=== PATIENT | male | born 1975 | race Caucasian/White ===

== ENCOUNTER 2020-03-17 14:13 | Observation (INO) | payer SELFPAY ==
[2020-03-17] MEDS ORDERED: HYDROmorphone 0.5 MG/0.5 ML Syringe IVPUSH ONE ×2 (14:53→17:23)
[2020-03-17] MEDS ORDERED: Ondansetron 4 MG/2 ML SDV IVPUSH ONE ×2 (14:53→16:07)
[2020-03-17] MEDS ORDERED: Sodium Chloride 0.9% 10 ML Syringe FLUSH PRN (14:53)
--- NOTE | 2020-03-17 14:58 | EDM.PDOC ---
ED HPI GENERAL MEDICAL PROBLEM - General Chief Complaint: Abdominal Pain Stated Complaint: ABDOMINAL AND BACK PAIN Time Seen by Provider: 03/17/20 14:33 Source of Information: Reports: Patient History Limitations: Reports: No Limitations - History of Present Illness INITIAL COMMENTS - FREE TEXT/NARRATIVE: Patient is a 44-year-old male who presents to the emergency department with complaints of generalized abdominal and back pain, as well as vomiting that developed this morning. Patient states the pain began approximately 4 days ago as right-sided abdominal pain. It gradually progressed throughout his entire abdomen and through to his back. This morning he developed onset of vomiting. He denies any associated diarrhea. States has been having normal bowel movements. He does still have his appendix and gallbladder. Denies any chronic health conditions. Denies alcohol use. He has not had a known fever with this illness, however states he has been chilled today. Denies any history of kidney stones or presence of blood in his urine. Middle Back Pain Score (Numeric/FACES): 8 - Related Data Allergies Allergy/AdvReac Type Severity Reaction Status Date / Time No Known Allergies Allergy Verified 03/17/20 14:33 Past Medical History - Infectious Disease History Infectious Disease History: Reports: Chicken Pox - Past Surgical History HEENT Surgical History: Reports: Oral Surgery Social & Family History - Family History Family Medical History: Noncontributory - Tobacco Use Smoking Status *Q: Current Every Day Smoker Years of Tobacco use: 30 Packs/Tins Daily: 1 ED ROS GENERAL - Review of Systems Review Of Systems: See Below Constitutional: Reports: Chills. Denies: Fever HEENT: Reports: No Symptoms Respiratory: Reports: No Symptoms. Denies: Shortness of Breath, Cough Cardiovascular: Reports: No Symptoms. Denies: Chest Pain, Palpitations ED EXAM, GI/ABD - Physical Exam Exam: See Below Exam Limited By: No Limitations General Appearance: Alert, WD/WN, Mild Distress, Active Emesis Respiratory/Chest: No Respiratory Distress, Lungs Clear, Normal Breath Sounds, No Accessory Muscle Use, Chest Non-Tender Cardiovascular: Normal Peripheral Pulses, Regular Rate, Rhythm, No Edema, No Gallop, No JVD, No Murmur, No Rub GI/Abdominal Exam: Normal Bowel Sounds, Soft, No Organomegaly, No Distention, No Abnormal Bruit, No Mass, Pelvis Stable, Tender (Right lateral, right upper quadrant, and left upper quadrant). No: Guarding, Rigid, Rebound Extremities: Normal Inspection, Normal Range of Motion, Non-Tender, Normal Capillary Refill, No Pedal Edema Neurological: Alert, Oriented, CN II-XII Intact, Normal Cognition, Normal Gait, Normal Reflexes, No Motor/Sensory Deficits Psychiatric: Normal Affect, Normal Mood Skin Exam: Warm, Dry, Intact, Normal Color, No Rash Course - Vital Signs Last Recorded V/S: Last Vital Signs Temp 96.9 F 03/17/20 14:33 Pulse 56 L 03/17/20 14:33 Resp 16 03/17/20 14:33 BP 150/84 H 03/17/20 14:33 Pulse Ox 94 L 03/17/20 14:33 - Orders/Labs/Meds Orders: Active Orders 24 hr Category Date Time Status EKG Documentation Completion [RC] STAT Care 03/17/20 14:54 Active Sodium Chloride 0.9% [Normal Saline] 1,000 ml Med 03/17/20 15:00 Active IV ASDIRECTED Sodium Chloride 0.9% [Normal Saline] 1,000 ml Med 03/17/20 16:15 Active IV ASDIRECTED Sodium Chloride 0.9% [Saline Flush] Med 03/17/20 14:53 Active 10 ml FLUSH ASDIRECTED PRN Peripheral IV Insertion Adult [OM.PC] Stat Oth 03/17/20 14:53 Ordered Medication Orders Sodium Chloride (Normal Saline) 1,000 mls @ 999 mls/hr IV ASDIRECTED ROSA Last Admin: 03/17/20 15:03 Dose: 999 mls/hr Sodium Chloride (Normal Saline) 1,000 mls @ 150 mls/hr IV ASDIRECTED ROSA Last Admin: 03/17/20 16:13 Dose: 150 mls/hr Sodium Chloride (Saline Flush) 10 ml FLUSH ASDIRECTED PRN PRN Reason: Keep Vein Open Last Admin: 03/17/20 15:07 Dose: 10 ml Labs: Laboratory Tests 03/17/20 03/17/20 03/17/20 Range/Units 14:45 14:45 14:58 WBC 11.54 H (4.23-9.07) K/mm3 RBC 4.91 (4.63-6.08) M/mm3 Hgb 14.6 (13.7-17.5) gm/dl Hct 43.2 (40.1-51.0) % MCV 88.0 (79.0-92.2) fl MCH 29.7 (25.7-32.2) pg MCHC 33.8 (32.2-35.5) g/dl RDW Std Deviation 41.9 (35.1-43.9) fL Plt Count 250 (163-337) K/mm3 MPV 10.6 (9.4-12.3) fl Neut % (Auto) 83.9 H (34.0-67.9) % Lymph % (Auto) 9.8 L (21.8-53.1) % [place] % (Auto) 4.9 L (5.3-12.2) % Eos % (Auto) 1.0 (0.8-7.0) Baso % (Auto) 0.2 (0.1-1.2) % Neut # (Auto) 9.70 H (1.78-5.38) K/mm3 Lymph # (Auto) 1.13 L (1.32-3.57) K/mm3 [place] # (Auto) 0.56 (0.30-0.82) K/mm3 Eos # (Auto) 0.11 (0.04-0.54) K/mm3 Baso # (Auto) 0.02 (0.01-0.08) K/mm3 Manual Slide Review Abnormal smear Sodium 140 (136-145) mEq/L Potassium 4.3 (3.5-5.1) mEq/L Chloride 104 (98-107) mEq/L Carbon Dioxide 25 (21-32) mEq/L Anion Gap 15.3 H (5-15) BUN 12 (7-18) mg/dL Creatinine 1.0 (0.7-1.3) mg/dL Est Cr Clr Drug Dosing 98.31 mL/min Estimated GFR (MDRD) > 60 (>60) mL/min BUN/Creatinine Ratio 12.0 L (14-18) Glucose 125 H (74-106) mg/dL Calcium 9.4 (8.5-10.1) mg/dL Total Bilirubin 0.6 (0.2-1.0) mg/dL GGT (15-85) U/L AST 23 (15-37) U/L ALT 40 (16-63) U/L Alkaline Phosphatase 99 (46-116) U/L Troponin I < 0.017 (0.00-0.056) ng/mL C-Reactive Protein 3.8 H* (<1.0) mg/dL Total Protein 7.6 (6.4-8.2) g/dl Albumin 4.0 (3.4-5.0) g/dl Globulin 3.6 gm/dL Albumin/Globulin Ratio 1.1 (1-2) Lipase 71 L (73-393) U/L Urine Color (Yellow) Urine Appearance (Clear) Urine pH (5.0-8.0) Ur Specific [place] (1.005-1.030) Urine Protein (Negative) Urine Glucose (UA) (Negative) Urine Ketones (Negative) Urine Occult Blood (Negative) Urine Nitrite (Negative) Urine Bilirubin (Negative) Urine Urobilinogen (0.2-1.0) Ur Leukocyte Esterase (Negative) Urine RBC (0-5) /hpf Urine WBC (0-5) /hpf Ur Squamous Epith Cells (0-5) /hpf Urine Bacteria (FEW) /hpf Urine Mucus (FEW) /hpf 03/17/20 03/17/20 Range/Units 14:58 17:05 WBC (4.23-9.07) K/mm3 RBC (4.63-6.08) M/mm3 Hgb (13.7-17.5) gm/dl Hct (40.1-51.0) % MCV (79.0-92.2) fl MCH (25.7-32.2) pg MCHC (32.2-35.5) g/dl RDW Std Deviation (35.1-43.9) fL Plt Count (163-337) K/mm3 MPV (9.4-12.3) fl Neut % (Auto) (34.0-67.9) % Lymph % (Auto) (21.8-53.1) % [place] % (Auto) (5.3-12.2) % Eos % (Auto) (0.8-7.0) Baso % (Auto) (0.1-1.2) % Neut # (Auto) (1.78-5.38) K/mm3 Lymph # (Auto) (1.32-3.57) K/mm3 [place] # (Auto) (0.30-0.82) K/mm3 Eos # (Auto) (0.04-0.54) K/mm3 Baso # (Auto) (0.01-0.08) K/mm3 Manual Slide Review Sodium (136-145) mEq/L Potassium (3.5-5.1) mEq/L Chloride (98-107) mEq/L Carbon Dioxide (21-32) mEq/L Anion Gap (5-15) BUN (7-18) mg/dL Creatinine (0.7-1.3) mg/dL Est Cr Clr Drug Dosing mL/min Estimated GFR (MDRD) (>60) mL/min BUN/Creatinine Ratio (14-18) Glucose (74-106) mg/dL Calcium (8.5-10.1) mg/dL Total Bilirubin (0.2-1.0) mg/dL GGT 98 H (15-85) U/L AST (15-37) U/L ALT (16-63) U/L Alkaline Phosphatase (46-116) U/L Troponin I (0.00-0.056) ng/mL C-Reactive Protein (<1.0) mg/dL Total Protein (6.4-8.2) g/dl Albumin (3.4-5.0) g/dl Globulin gm/dL Albumin/Globulin Ratio (1-2) Lipase (73-393) U/L Urine Color Yellow (Yellow) Urine Appearance Clear (Clear) Urine pH 6.0 (5.0-8.0) Ur Specific [place] 1.020 (1.005-1.030) Urine Protein Negative (Negative) Urine Glucose (UA) Negative (Negative) Urine Ketones 3+ H (Negative) Urine Occult Blood Trace-lysed H (Negative) Urine Nitrite Negative (Negative) Urine Bilirubin Negative (Negative) Urine Urobilinogen 0.2 (0.2-1.0) Ur Leukocyte Esterase Negative (Negative) Urine RBC 0-5 (0-5) /hpf Urine WBC 0-5 (0-5) /hpf Ur Squamous Epith Cells 0-5 (0-5) /hpf Urine Bacteria Occasional (FEW) /hpf Urine Mucus Few (FEW) /hpf Meds: Medications Generic Name Dose Route Start Last Admin Trade Name Freq PRN Reason Stop Dose Admin Sodium Chloride 1,000 mls @ 999 mls/hr 03/17/20 15:00 05/23/20 15:03 Normal Saline IV 999 mls/hr ASDIRECTED ROSA Administration Sodium Chloride 1,000 mls @ 150 mls/hr 03/17/20 16:15 03/17/20 16:13 Normal Saline IV 150 mls/hr ASDIRECTED ROAS Administration Sodium Chloride 10 ml 03/17/20 14:53 03/17/20 15:07 Saline Flush FLUSH 10 ml ASDIRECTED PRN Administration Keep Vein Open Discontinued Medications Generic Name Dose Route Start Last Admin Trade Name Freq PRN Reason Stop Dose Admin Hydromorphone HCl 0.5 mg 03/17/20 14:53 03/17/20 15:03 Dilaudid IVPUSH 03/17/20 14:54 0.5 mg ONETIME ONE Administration Hydromorphone HCl 0.5 mg 03/17/20 17:23 03/17/20 17:27 Dilaudid IVPUSH 03/17/20 17:24 0.5 mg ONETIME ONE Administration Piperacillin Sod/Tazobactam 100 mls @ 200 mls/hr 03/17/20 18:22 03/17/20 18: 39 Sod 4.5 gm/ Sodium Chloride IV 03/17/20 18:51 200 mls/hr ONETIME ONE Administration Iopamidol 100 ml 03/17/20 16:33 03/17/20 16:58 Isovue-300 (61%) IVPUSH 03/17/20 16:34 100 ml ONETIME ONE Administration Iopamidol 50 ml 03/17/20 16:33 03/17/20 16:58 Isovue-300 (61%) IVPUSH 03/17/20 16:34 25 ml ONETIME ONE Administration Ondansetron HCl 4 mg 03/17/20 14:53 03/17/20 15:03 Zofran IVPUSH 03/17/20 14:54 4 mg ONETIME ONE Administration Ondansetron HCl 4 mg 03/17/20 16:07 03/17/20 16:13 Zofran IVPUSH 03/17/20 16:08 4 mg ONETIME ONE Administration Sodium Chloride 10 ml 03/17/20 16:33 03/17/20 16:58 Saline Flush FLUSH 03/17/20 16:34 10 ml ONETIME ONE Administration - Re-Assessments/Exams Free Text/Narrative Re-Assessment/Exam: 03/17/20 1720 Hematology was significant for a slightly elevated WBC at 11.54, anion gap 15.3 , GGT 98, CRP 3.8. Urinalysis was negative for any infection. CT of the abdomen pelvis showed at least 1 or 2 gallstones. I have ordered an ultrasound of the gallbladder as well as another dose of Dilaudid 0.5. 03/17/20 18:21 Ultrasound of the gallbladder showed a completely sludge-filled gallbladder with 2 gallstones. One gallstone within the gallbladder neck. Mild gallbladder wall thickening is seen. Difficult to exclude early acute cholecystitis. No biliary duct dilation is seen. Called and spoke with the on- call surgeon, Dr. Gordon. He gave orders to admit to observation with the intent of removing his gallbladder tomorrow morning. Requested Zosyn 4.5 g be given, LR at 100, morphine 1 mg every 2 hours as needed pain. Zofran 4 mg IV every 6 hours as needed nausea. Patient will remain n.p.o. Discussed this with the patient and he is in agreement. Departure - Departure Time of Disposition: 18:21 Disposition: Refer to Observation Condition: Good Clinical Impression: Acute cholecystitis - Discharge Information Sepsis Event Note - Evaluation Sepsis Screening Result: No Definite Risk - Focused Exam Vital Signs: Vital Signs Temp Pulse Resp BP Pulse Ox 03/17/20 14:33 96.9 F 56 L 16 150/84 H 94 L Date Exam was Performed: 03/17/20 Time Exam was Performed: 19:58 - My Orders Last 24 Hours: My Active Orders 03/17/20 14:53 Sodium Chloride 0.9% [Saline Flush] 10 ml FLUSH ASDIRECTED PRN Peripheral IV Insertion Adult [OM.PC] Stat 03/17/20 14:54 EKG Documentation Completion [RC] STAT 03/17/20 15:00 Sodium Chloride 0.9% [Normal Saline] 1,000 ml IV ASDIRECTED 03/17/20 16:15 Sodium Chloride 0.9% [Normal Saline] 1,000 ml IV ASDIRECTED - Assessment/Plan Last 24 Hours: My Active Orders 03/17/20 14:53 Sodium Chloride 0.9% [Saline Flush] 10 ml FLUSH ASDIRECTED PRN Peripheral IV Insertion Adult [OM.PC] Stat 03/17/20 14:54 EKG Documentation Completion [RC] STAT 03/17/20 15:00 Sodium Chloride 0.9% [Normal Saline] 1,000 ml IV ASDIRECTED 03/17/20 16:15 Sodium Chloride 0.9% [Normal Saline] 1,000 ml IV ASDIRECTED
[2020-03-17] MEDS ORDERED: Sodium Chloride 0.9% 1,000 ML IV SCH ×2 (15:00→16:15)
[2020-03-17] MEDS ORDERED: Sodium Chloride 0.9% 10 ML Syringe FLUSH ONE (16:33)
[2020-03-17] MEDS ORDERED: Iopamidol 612 MG/ML 50 ML SDV IVPUSH ONE (16:33)
[2020-03-17] MEDS ORDERED: Iopamidol 612 MG/ML 100 ML Bottle IVPUSH ONE (16:33)
--- NOTE | 2020-03-17 17:12 | CT ---
CT abdomen and pelvis Technique: Multiple axial sections were obtained from above the dome of the diaphragm inferiorly through the pubic symphysis. Intravenous and oral contrast was utilized. Delayed images were also obtained through the pelvis. Comparison: No prior abdominal imaging. Findings: Visualized lung bases show nothing acute. Liver contains no focal abnormality. Small hiatal hernia is noted. Spleen appears normal. Adrenal glands show no nodule. Pancreas is within normal limits. At least 1 or 2 gallstones appear to be present within the liver which are noncalcified. Aorta shows no aneurysm. No retroperitoneal adenopathy or mesenteric abnormalities are seen. Appendix is seen which is normal. No pelvic mass or adenopathy is seen. No free fluid or inflammatory change is appreciated. Delayed images shows contrast within the distal ureters and within the bladder. Small bilateral fat-containing inguinal hernias are noted. Bone window settings were reviewed. Mild degenerative change within the lower thoracic spine is seen. Several mild compression deformities are noted within the lower thoracic spine which appeared to be old. Small fat-containing umbilical hernia is noted. Impression: 1. At least 1 or 2 gallstones are noted. 2. Other findings as noted above. 3. Nothing acute is appreciated. Diagnostic code #3 This report was dictated in MDT
--- NOTE | 2020-03-17 18:11 | US ---
Limited abdominal ultrasound: Multiple real-time images of the right upper quadrant were obtained. Gallbladder is completely filled with sludge. Gallbladder wall shows mild thickening. 2 gallstones are seen 1 within the fundus and 2nd within the gallbladder neck. No pericholecystic fluid is seen. No biliary duct dilatation is seen. Liver contains no focal abnormality. Pancreas is incompletely seen. Visualized portions of the pancreas shows no discrete abnormality. Main portal vein shows normal hepatopedal flow. Impression: 1. Sludge-filled gallbladder with 2 gallstones. One gallstone within the gallbladder neck. Mild gallbladder wall thickening is seen. Difficult to exclude early acute cholecystitis. 2. No biliary duct dilatation is seen. 3. No additional abnormality is appreciated. Diagnostic code #3 This report was dictated in MDT
[2020-03-17] MEDS ORDERED: Piperacillin/Tazobactam 4.5 GM in Sodium Chloride 0.9% 100 ML IV ONE (18:22)
[2020-03-17] MEDS: Morphine 2 MG/ML Syringe IVPUSH PRN ×2 (20:56→23:36)
[2020-03-17] MEDS: Lactated Ringers 1,000 ML IV SCH (20:57)
[2020-03-17] MEDS: Ondansetron 4 MG/2 ML SDV IVPUSH PRN (21:46)
[2020-03-18] MEDS: Morphine 2 MG/ML Syringe IVPUSH PRN ×5 (01:34→17:08)
[2020-03-18] MEDS ORDERED: HYDROmorphone 0.5 MG/0.5 ML Syringe IVPUSH ONE (01:52)
[2020-03-18] MEDS: Piperacillin/Tazobactam 4.5 GM in Sodium Chloride 0.9% 100 ML IV SCH ×2 (03:57→12:29)
--- NOTE | 2020-03-18 07:58 | PCM.HP.2 ---
H&P History of Present Illness - General Date of Service: 03/18/20 Admit Problem/Dx: Admission Diagnosis/Problem Admission Diagnosis/Problem Acute cholecystitis Source of Information: Patient History Limitations: Reports: No Limitations - History of Present Illness Duration of Symptoms: Reports: Day(s): Location: Reports: Abdomen Other HPI/Comments: Mr. Mace is a 44 yo man presenting with a few days of right upper quadrant pain. The pain has been constant, is located in the right upper quadrant and radiates to the back. He vomited once yesterday. He has never had this pain before. He denies other medical problems. He smokes 1 ppd. Workup in ER last night shows leukocytosis of 11.5 and imaging findings on CT and US of cholelithiasis with signs of early cholecystitis on US. No abnormality in liver function tests. Middle Back Pain Score (Numeric/FACES): 8 Right upper abdomen Pain Score (Numeric/FACES): 6 - Related Data Allergies/Adverse Reactions: Allergies Allergy/AdvReac Type Severity Reaction Status Date / Time No Known Allergies Allergy Verified 03/17/20 14:33 Home Medications: Home Meds Ibuprofen 200 mg PO Q4H PRN 03/18/20 [History] Non-Formulary Medication [NF Drug] 1 tab PO ASDIRECTED PRN 03/18/20 [History] Past Medical History HEENT History: Reports: Sinusitis - Infectious Disease History Infectious Disease History: Reports: Chicken Pox - Past Surgical History HEENT Surgical History: Reports: Oral Surgery Social & Family History - Family History Family Medical History: Noncontributory - Tobacco Use Smoking Status *Q: Current Every Day Smoker Years of Tobacco use: 30 Packs/Tins Daily: 1 Used Tobacco, but Quit: No - Caffeine Use Caffeine Use: Reports: Energy Drinks Caffeine Use Comment: 2 energy drinks/day - Recreational Drug Use Recreational Drug Use: No H&P Review of Systems - Review of Systems: Review Of Systems: See Below General: Reports: Malaise, Weakness HEENT: Reports: No Symptoms Pulmonary: Reports: No Symptoms Cardiovascular: Reports: No Symptoms Gastrointestinal: Reports: Abdominal Pain, Nausea, Vomiting Musculoskeletal: Reports: No Symptoms Skin: Reports: No Symptoms Psychiatric: Reports: No Symptoms Exam - Exam Exam: See Below - Vital Signs Vital Signs: Last Vital Signs Temp 37.0 C 03/18/20 01:43 Pulse 92 05/24/20 01:43 Resp 20 03/18/20 01:43 BP 133/78 03/18/20 01:43 Pulse Ox 92 L 03/18/20 01:43 Weight: 110.813 kg - Exam General: Alert, Mild Distress HEENT: Conjunctiva Clear Neck: Supple Lungs: Clear to Auscultation, Normal Respiratory Effort Cardiovascular: Tachycardia GI/Abdominal Exam: Tender (Male) Exam: Hernia Rectal (Males) Exam: Deferred Skin: Warm, Dry Neuro Extensive - Mental Status: Alert, Oriented x3 Psychiatric: Normal Mood - Patient Data Lab Results Last 24 hrs: Laboratory Results - last 24 hr 03/17/20 03/17/20 03/17/20 Range/Units 14:45 14:45 14:58 WBC 11.54 H (4.23-9.07) K/mm3 RBC 4.91 (4.63-6.08) M/mm3 Hgb 14.6 (13.7-17.5) gm/dl Hct 43.2 (40.1-51.0) % MCV 88.0 (79.0-92.2) fl MCH 29.7 (25.7-32.2) pg MCHC 33.8 (32.2-35.5) g/dl RDW Std Deviation 41.9 (35.1-43.9) fL Plt Count 250 (163-337) K/mm3 MPV 10.6 (9.4-12.3) fl Neut % (Auto) 83.9 H (34.0-67.9) % Lymph % (Auto) 9.8 L (21.8-53.1) % [place] % (Auto) 4.9 L (5.3-12.2) % Eos % (Auto) 1.0 (0.8-7.0) Baso % (Auto) 0.2 (0.1-1.2) % Neut # (Auto) 9.70 H (1.78-5.38) K/mm3 Lymph # (Auto) 1.13 L (1.32-3.57) K/mm3 [place] # (Auto) 0.56 (0.30-0.82) K/mm3 Eos # (Auto) 0.11 (0.04-0.54) K/mm3 Baso # (Auto) 0.02 (0.01-0.08) K/mm3 Manual Slide Review Abnormal smear Sodium 140 (136-145) mEq/L Potassium 4.3 (3.5-5.1) mEq/L Chloride 104 (98-107) mEq/L Carbon Dioxide 25 (21-32) mEq/L Anion Gap 15.3 H (5-15) BUN 12 (7-18) mg/dL Creatinine 1.0 (0.7-1.3) mg/dL Est Cr Clr Drug Dosing 98.31 mL/min Estimated GFR (MDRD) > 60 (>60) mL/min BUN/Creatinine Ratio 12.0 L (14-18) Glucose 125 H (74-106) mg/dL Calcium 9.4 (8.5-10.1) mg/dL Total Bilirubin 0.6 (0.2-1.0) mg/dL GGT (15-85) U/L AST 23 (15-37) U/L ALT 40 (16-63) U/L Alkaline Phosphatase 99 (46-116) U/L Troponin I < 0.017 (0.00-0.056) ng/mL C-Reactive Protein 3.8 H* (<1.0) mg/dL Total Protein 7.6 (6.4-8.2) g/dl Albumin 4.0 (3.4-5.0) g/dl Globulin 3.6 gm/dL Albumin/Globulin Ratio 1.1 (1-2) Lipase 71 L (73-393) U/L Urine Color (Yellow) Urine Appearance (Clear) Urine pH (5.0-8.0) Ur Specific [place] (1.005-1.030) Urine Protein (Negative) Urine Glucose (UA) (Negative) Urine Ketones (Negative) Urine Occult Blood (Negative) Urine Nitrite (Negative) Urine Bilirubin (Negative) Urine Urobilinogen (0.2-1.0) Ur Leukocyte Esterase (Negative) Urine RBC (0-5) /hpf Urine WBC (0-5) /hpf Ur Squamous Epith Cells (0-5) /hpf Urine Bacteria (FEW) /hpf Urine Mucus (FEW) /hpf 03/17/20 03/17/20 Range/Units 14:58 17:05 WBC (4.23-9.07) K/mm3 RBC (4.63-6.08) M/mm3 Hgb (13.7-17.5) gm/dl Hct (40.1-51.0) % MCV (79.0-92.2) fl MCH (25.7-32.2) pg MCHC (32.2-35.5) g/dl RDW Std Deviation (35.1-43.9) fL Plt Count (163-337) K/mm3 MPV (9.4-12.3) fl Neut % (Auto) (34.0-67.9) % Lymph % (Auto) (21.8-53.1) % [place] % (Auto) (5.3-12.2) % Eos % (Auto) (0.8-7.0) Baso % (Auto) (0.1-1.2) % Neut # (Auto) (1.78-5.38) K/mm3 Lymph # (Auto) (1.32-3.57) K/mm3 [place] # (Auto) (0.30-0.82) K/mm3 Eos # (Auto) (0.04-0.54) K/mm3 Baso # (Auto) (0.01-0.08) K/mm3 Manual Slide Review Sodium (136-145) mEq/L Potassium (3.5-5.1) mEq/L Chloride (98-107) mEq/L Carbon Dioxide (21-32) mEq/L Anion Gap (5-15) BUN (7-18) mg/dL Creatinine (0.7-1.3) mg/dL Est Cr Clr Drug Dosing mL/min Estimated GFR (MDRD) (>60) mL/min BUN/Creatinine Ratio (14-18) Glucose (74-106) mg/dL Calcium (8.5-10.1) mg/dL Total Bilirubin (0.2-1.0) mg/dL GGT 98 H (15-85) U/L AST (15-37) U/L ALT (16-63) U/L Alkaline Phosphatase (46-116) U/L Troponin I (0.00-0.056) ng/mL C-Reactive Protein (<1.0) mg/dL Total Protein (6.4-8.2) g/dl Albumin (3.4-5.0) g/dl Globulin gm/dL Albumin/Globulin Ratio (1-2) Lipase (73-393) U/L Urine Color Yellow (Yellow) Urine Appearance Clear (Clear) Urine pH 6.0 (5.0-8.0) Ur Specific [place] 1.020 (1.005-1.030) Urine Protein Negative (Negative) Urine Glucose (UA) Negative (Negative) Urine Ketones 3+ H (Negative) Urine Occult Blood Trace-lysed H (Negative) Urine Nitrite Negative (Negative) Urine Bilirubin Negative (Negative) Urine Urobilinogen 0.2 (0.2-1.0) Ur Leukocyte Esterase Negative (Negative) Urine RBC 0-5 (0-5) /hpf Urine WBC 0-5 (0-5) /hpf Ur Squamous Epith Cells 0-5 (0-5) /hpf Urine Bacteria Occasional (FEW) /hpf Urine Mucus Few (FEW) /hpf Result Diagrams: 03/17/20 14:45 03/17/20 14:45 Sepsis Event Note - Evaluation Sepsis Screening Result: No Definite Risk - Focused Exam Vital Signs: Vital Signs Temp Pulse Resp BP Pulse Ox 03/18/20 01:43 37.0 C 92 20 133/78 92 L Date Exam was Performed: 03/18/20 Time Exam was Performed: 07:53 *Q Meaningful Use (ADM) - VTE Risk Assess *Q Each Risk Factor Represents 1 Point: Age 41 - 59 years Total Score 1 Point Risk Factors: 1 Each Risk Factor Represents 2 Points: Laparoscopic surgery greater than 45 minutes Total Score 2 Point Risk Factors: 2 Problem List Initiated/Reviewed/Updated: Yes Orders Last 24hrs: Active Orders 24 hr Category Date Time Status Patient Status [ADT] Routine ADT 03/17/20 18:27 Active Activity as Tolerated [RC] BID Care 03/17/20 20:46 Active Lactated Ringers [Ringers, Lactated] 1,000 ml Med 03/17/20 20:45 Active IV ASDIRECTED Morphine Med 03/17/20 20:34 Active 1 mg IVPUSH Q2H PRN Ondansetron [Zofran] Med 03/17/20 20:37 Active 4 mg IVPUSH Q6H PRN Piperacillin/Tazobactam [Piperacil-Tazobact] 4.5 gm Med 03/18/20 04:00 Active Sodium Chloride 0.9% [Normal Saline] 100 ml IV Q8H Sodium Chloride 0.9% [Saline Flush] Med 03/17/20 14:53 Active 10 ml FLUSH ASDIRECTED PRN Peripheral IV Insertion Adult [OM.PC] Stat Oth 03/17/20 14:53 Ordered Schedule Procedure [COMM] Routine Oth 03/18/20 07:52 Ordered Code Status [Resuscitation Status] Routine Resus Stat 03/17/20 20:42 Ordered Medication Orders Lactated Ringer's (Ringers, Lactated) 1,000 mls @ 100 mls/hr IV ASDIRECTED ROSA Last Admin: 03/17/20 20:57 Dose: 100 mls/hr Piperacillin Sod/Tazobactam (Sod 4.5 gm/ Sodium Chloride) 100 mls @ 25 mls/hr IV Q8H ROSA Last Admin: 03/18/20 03:57 Dose: 25 mls/hr Morphine Sulfate (Morphine) 1 mg IVPUSH Q2H PRN PRN Reason: Pain Last Admin: 03/18/20 04:57 Dose: 1 mg Admin: 03/18/20 01:34 Dose: 1 mg Admin: 03/17/20 23:36 Dose: 1 mg Admin: 03/17/20 20:56 Dose: 1 mg Ondansetron HCl (Zofran) 4 mg IVPUSH Q6H PRN PRN Reason: Nausea Last Admin: 03/17/20 21:46 Dose: 4 mg Sodium Chloride (Saline Flush) 10 ml FLUSH ASDIRECTED PRN PRN Reason: Keep Vein Open Last Admin: 03/17/20 15:07 Dose: 10 ml Assessment/Plan Comment:: Acute calculous cholecystitis- plan for laparoscopic cholecystectomy today after COVID test results. I reviewed the pathophysiology of gallstones and cholecystitis, and the details of laparoscopic cholecystectomy. I reviewed risks including bleeding, infection, and bile duct injury. All questions were answered to the patient's satisfaction and informed consent was obtained. - Mortality Measure Prognosis:: Good
[2020-03-18] MEDS: Lactated Ringers 1,000 ML IV SCH (08:01)
[2020-03-18] MEDS ORDERED: Bupivacaine 0.5%/EPINEPHrine 1:200,000 50 ML MDV ONE (08:25)
--- NOTE | 2020-03-18 09:13 | PCM.PRNOTE ---
- Free Text/Narrative Note: Operative Report Operation: laparoscopic cholecystectomy Date: 03/18/2020 Attending Surgeon: Zay Gordon MD Indication for Surgery:acute cholecystitis Preoperative antibiotics: zosyn VTE prophylaxis: SCDs Estimated Blood Loss: 100 cc Findings: calculous cholecystitis with severe inflammatory change. Difficult dissection, with bleeding in the dissection bed after gallbladder removal that was controlled with direct pressure and application of Surgicel. Detailed Report: The patient underwent general endotracheal anesthesia after being placed supine on the operating table and initial timeout. The abdomen was prepped and draped in sterile fashion. A pre-incision timeout was performed confirming the patient s identity and the operation to be performed. A Veress needle was inserted into the abdominal cavity below the left costal margin along the mid-clavicular line. The abdomen was insufflated with CO2 to 15 mm Hg. Gas was aspirated below the umbilicus with a syringe in order to ensure safe placement of a 5 mm bladed laparoscopic port. The 5mm 30 degree laparoscope was then inserted and viscera inspected. The gallbladder appeared severely inflamed. Needle decompression was required, with 60 cc bilious fluid drained. Two additional 5 mm ports were placed along the right subcostal region under direct vision with the laparoscope , and a 12 mm port was placed at the subxiphoid region. The gallbladder was grasped at the fundus with a locking grasper and retracted anteriorly and superiorly, exposing the infundibulum. This was grasped with the surgeons left hand grasper and retracted laterally. Blunt dissection with Kittner and suction- automobile service advisor ensued, taking down omental adhesions. An additional 5 mm port was placed at the left upper quadrant to hold the viscera out of the line of view, in order to optimize exposure. The hook electrode was used to open the overlying peritoneum, and this plane of dissection was developed along the edges of the gallbladder at its interface with the liver bed. A combination of hook electrode, blunt dissection with the suction automobile service advisor and the [place] grasper were used to carefully expose and skeletonize the cystic duct and artery. A critical view of safety was obtained. Hemolock clips were then placed on both structures. The duct and artery were transected with laparoscopic scissors between the hemolock clips. The hook was then used to dissect the gallbladder free from its attachment to the liver. This was difficult, and there was bleeding from the dissection bed. The specimen was then placed in an Endocatch bag and removed through the subxiphoid port. Moderate hemorrhage was controlled with directed monopolar energy, direct pressure, and application of Surgicel. With adequate hemostasis enusred, the dissection field was thoroughly irrigated and suctioned. The larger subxiphoid port was closed at the level of the fascia with vicryl suture using the PMI laparoscopic suture passer. Pneumoperitoneum was then released. All skin incisions were then closed with placement of subcuticular vicryl suture and dressed with dermabond. A total of 30 cc 0.5% marcaine with epinephrine was used for local anesthesia at the incision sites. The patient tolerated the operation well, was extubated in the operating room and transferred to the PACU for routine post-anesthesia care. Zay Gordon MD General Surgery
--- NOTE | 2020-03-18 09:15 | PCM.DCSUM1 ---
Discharge Summary - Hospital Course Free Text/Narrative:: Admitted last night from ER with abdominal pain, found to have cholecystitis. Diagnosis: Stroke: No - Discharge Data Discharge Date: 03/18/20 Discharge Disposition: Home, Self-Care 01 Condition: Good - Referral to Home Health Primary Care Physician: PCP None - Patient Summary/Data Operative Procedure(s) Performed: laparoscopic cholecystectomy Hospital Course: Admitted from ER with evidence of acute calculous cholecystitis 03/17. The patient was admitted for pain control, fluid resuscitation and antibiotic administration prior to cholecystectomy. Went to OR for laparoscopic cholecystectomy the morning of 03/18. The operation was completed without complication and the patient was deemed fit for discharge to home from the recovery room. - Patient Instructions Diet: Regular Diet as Tolerated Activity: No Lifting Over 10 Pounds Showering/Bathing: February Shower Wound/Incision Care: Keep Operative Site/Wound Site Clean and Dry Notify Provider of: Fever, Increased Pain, Swelling and Redness, Drainage, Nausea and/or Vomiting - Discharge Plan *PRESCRIPTION DRUG MONITORING PROGRAM REVIEWED*: Not Applicable *COPY OF PRESCRIPTION DRUG MONITORING REPORT IN PATIENT GERMAN: Not Applicable Prescriptions/Med Rec: oxyCODONE 5 mg PO Q4H PRN #10 tab PRN Reason: Pain Home Medications: Home Meds Ibuprofen 200 mg PO Q4H PRN 03/18/20 [History] Non-Formulary Medication [NF Drug] 1 tab PO ASDIRECTED PRN 03/18/20 [History] oxyCODONE 5 mg PO Q4H PRN #10 tab 03/18/20 [Rx] Oxygen Therapy Mode: Room Air Patient Handouts: Laparoscopic Cholecystectomy, Care After Forms: ED Department Discharge Referrals: PCP,None [Primary Care Provider] - - Discharge Summary/Plan Comment DC Time >30 min.: No - Patient Data Vitals - Most Recent: Last Vital Signs Temp 37.0 C 03/18/20 01:43 Pulse 92 03/18/20 01:43 Resp 20 03/18/20 01:43 BP 133/78 03/18/20 01:43 Pulse Ox 92 L 03/18/20 01:43 Weight - Most Recent: 110.813 kg I&O - Last 24 hours: Intake & Output 03/17/20 03/18/20 03/18/20 22:59 06:59 14:59 Intake Total 964 Output Total 850 Balance 114 Lab Results - Last 24 hrs: Laboratory Results - last 24 hr 03/17/20 03/17/20 03/17/20 Range/Units 14:45 14:45 14:58 WBC 11.54 H (4.23-9.07) K/mm3 RBC 4.91 (4.63-6.08) M/mm3 Hgb 14.6 (13.7-17.5) gm/dl Hct 43.2 (40.1-51.0) % MCV 88.0 (79.0-92.2) fl MCH 29.7 (25.7-32.2) pg MCHC 33.8 (32.2-35.5) g/dl RDW Std Deviation 41.9 (35.1-43.9) fL Plt Count 250 (163-337) K/mm3 MPV 10.6 (9.4-12.3) fl Neut % (Auto) 83.9 H (34.0-67.9) % Lymph % (Auto) 9.8 L (21.8-53.1) % [place] % (Auto) 4.9 L (5.3-12.2) % Eos % (Auto) 1.0 (0.8-7.0) Baso % (Auto) 0.2 (0.1-1.2) % Neut # (Auto) 9.70 H (1.78-5.38) K/mm3 Lymph # (Auto) 1.13 L (1.32-3.57) K/mm3 [place] # (Auto) 0.56 (0.30-0.82) K/mm3 Eos # (Auto) 0.11 (0.04-0.54) K/mm3 Baso # (Auto) 0.02 (0.01-0.08) K/mm3 Manual Slide Review Abnormal smear Sodium 140 (136-145) mEq/L Potassium 4.3 (3.5-5.1) mEq/L Chloride 104 (98-107) mEq/L Carbon Dioxide 25 (21-32) mEq/L Anion Gap 15.3 H (5-15) BUN 12 (7-18) mg/dL Creatinine 1.0 (0.7-1.3) mg/dL Est Cr Clr Drug Dosing 98.31 mL/min Estimated GFR (MDRD) > 60 (>60) mL/min BUN/Creatinine Ratio 12.0 L (14-18) Glucose 125 H (74-106) mg/dL Calcium 9.4 (8.5-10.1) mg/dL Total Bilirubin 0.6 (0.2-1.0) mg/dL GGT (15-85) U/L AST 23 (15-37) U/L ALT 40 (16-63) U/L Alkaline Phosphatase 99 (46-116) U/L Troponin I < 0.017 (0.00-0.056) ng/mL C-Reactive Protein 3.8 H* (<1.0) mg/dL Total Protein 7.6 (6.4-8.2) g/dl Albumin 4.0 (3.4-5.0) g/dl Globulin 3.6 gm/dL Albumin/Globulin Ratio 1.1 (1-2) Lipase 71 L (73-393) U/L Urine Color (Yellow) Urine Appearance (Clear) Urine pH (5.0-8.0) Ur Specific [place] (1.005-1.030) Urine Protein (Negative) Urine Glucose (UA) (Negative) Urine Ketones (Negative) Urine Occult Blood (Negative) Urine Nitrite (Negative) Urine Bilirubin (Negative) Urine Urobilinogen (0.2-1.0) Ur Leukocyte Esterase (Negative) Urine RBC (0-5) /hpf Urine WBC (0-5) /hpf Ur Squamous Epith Cells (0-5) /hpf Urine Bacteria (FEW) /hpf Urine Mucus (FEW) /hpf SARS Virus RNA (PCR) (NEGATIVE) SARS-CoV-2 RNA (RT-PCR) (NEGATIVE) 03/17/20 03/17/20 03/18/20 Range/Units 14:58 17:05 07:51 WBC (4.23-9.07) K/mm3 RBC (4.63-6.08) M/mm3 Hgb (13.7-17.5) gm/dl Hct (40.1-51.0) % MCV (79.0-92.2) fl MCH (25.7-32.2) pg MCHC (32.2-35.5) g/dl RDW Std Deviation (35.1-43.9) fL Plt Count (163-337) K/mm3 MPV (9.4-12.3) fl Neut % (Auto) (34.0-67.9) % Lymph % (Auto) (21.8-53.1) % [place] % (Auto) (5.3-12.2) % Eos % (Auto) (0.8-7.0) Baso % (Auto) (0.1-1.2) % Neut # (Auto) (1.78-5.38) K/mm3 Lymph # (Auto) (1.32-3.57) K/mm3 [place] # (Auto) (0.30-0.82) K/mm3 Eos # (Auto) (0.04-0.54) K/mm3 Baso # (Auto) (0.01-0.08) K/mm3 Manual Slide Review Sodium (136-145) mEq/L Potassium (3.5-5.1) mEq/L Chloride (98-107) mEq/L Carbon Dioxide (21-32) mEq/L Anion Gap (5-15) BUN (7-18) mg/dL Creatinine (0.7-1.3) mg/dL Est Cr Clr Drug Dosing mL/min Estimated GFR (MDRD) (>60) mL/min BUN/Creatinine Ratio (14-18) Glucose (74-106) mg/dL Calcium (8.5-10.1) mg/dL Total Bilirubin (0.2-1.0) mg/dL GGT 98 H (15-85) U/L AST (15-37) U/L ALT (16-63) U/L Alkaline Phosphatase (46-116) U/L Troponin I (0.00-0.056) ng/mL C-Reactive Protein (<1.0) mg/dL Total Protein (6.4-8.2) g/dl Albumin (3.4-5.0) g/dl Globulin gm/dL Albumin/Globulin Ratio (1-2) Lipase (73-393) U/L Urine Color Yellow (Yellow) Urine Appearance Clear (Clear) Urine pH 6.0 (5.0-8.0) Ur Specific [place] 1.020 (1.005-1.030) Urine Protein Negative (Negative) Urine Glucose (UA) Negative (Negative) Urine Ketones 3+ H (Negative) Urine Occult Blood Trace-lysed H (Negative) Urine Nitrite Negative (Negative) Urine Bilirubin Negative (Negative) Urine Urobilinogen 0.2 (0.2-1.0) Ur Leukocyte Esterase Negative (Negative) Urine RBC 0-5 (0-5) /hpf Urine WBC 0-5 (0-5) /hpf Ur Squamous Epith Cells 0-5 (0-5) /hpf Urine Bacteria Occasional (FEW) /hpf Urine Mucus Few (FEW) /hpf SARS Virus RNA (PCR) (NEGATIVE) SARS-CoV-2 RNA (RT-PCR) Negative (NEGATIVE) 03/18/20 Range/Units 07:51 WBC (4.23-9.07) K/mm3 RBC (4.63-6.08) M/mm3 Hgb (13.7-17.5) gm/dl Hct (40.1-51.0) % MCV (79.0-92.2) fl MCH (25.7-32.2) pg MCHC (32.2-35.5) g/dl RDW Std Deviation (35.1-43.9) fL Plt Count (163-337) K/mm3 MPV (9.4-12.3) fl Neut % (Auto) (34.0-67.9) % Lymph % (Auto) (21.8-53.1) % [place] % (Auto) (5.3-12.2) % Eos % (Auto) (0.8-7.0) Baso % (Auto) (0.1-1.2) % Neut # (Auto) (1.78-5.38) K/mm3 Lymph # (Auto) (1.32-3.57) K/mm3 [place] # (Auto) (0.30-0.82) K/mm3 Eos # (Auto) (0.04-0.54) K/mm3 Baso # (Auto) (0.01-0.08) K/mm3 Manual Slide Review Sodium (136-145) mEq/L Potassium (3.5-5.1) mEq/L Chloride (98-107) mEq/L Carbon Dioxide (21-32) mEq/L Anion Gap (5-15) BUN (7-18) mg/dL Creatinine (0.7-1.3) mg/dL Est Cr Clr Drug Dosing mL/min Estimated GFR (MDRD) (>60) mL/min BUN/Creatinine Ratio (14-18) Glucose (74-106) mg/dL Calcium (8.5-10.1) mg/dL Total Bilirubin (0.2-1.0) mg/dL GGT (15-85) U/L AST (15-37) U/L ALT (16-63) U/L Alkaline Phosphatase (46-116) U/L Troponin I (0.00-0.056) ng/mL C-Reactive Protein (<1.0) mg/dL Total Protein (6.4-8.2) g/dl Albumin (3.4-5.0) g/dl Globulin gm/dL Albumin/Globulin Ratio (1-2) Lipase (73-393) U/L Urine Color (Yellow) Urine Appearance (Clear) Urine pH (5.0-8.0) Ur Specific [place] (1.005-1.030) Urine Protein (Negative) Urine Glucose (UA) (Negative) Urine Ketones (Negative) Urine Occult Blood (Negative) Urine Nitrite (Negative) Urine Bilirubin (Negative) Urine Urobilinogen (0.2-1.0) Ur Leukocyte Esterase (Negative) Urine RBC (0-5) /hpf Urine WBC (0-5) /hpf Ur Squamous Epith Cells (0-5) /hpf Urine Bacteria (FEW) /hpf Urine Mucus (FEW) /hpf SARS Virus RNA (PCR) Negative (NEGATIVE) SARS-CoV-2 RNA (RT-PCR) (NEGATIVE) Med Orders - Current: Current Medications Lactated Ringer's (Ringers, Lactated) 1,000 mls @ 100 mls/hr IV ASDIRECTED [facility] Last Admin: 03/18/20 08:01 Dose: 100 mls/hr Piperacillin Sod/Tazobactam (Sod 4.5 gm/ Sodium Chloride) 100 mls @ 25 mls/hr IV Q8H [facility] Last Admin: 03/18/20 03:57 Dose: 25 mls/hr Morphine Sulfate (Morphine) 1 mg IVPUSH Q2H PRN PRN Reason: Pain Last Admin: 03/18/20 08:32 Dose: 1 mg Ondansetron HCl (Zofran) 4 mg IVPUSH Q6H PRN PRN Reason: Nausea Last Admin: 03/17/20 21:46 Dose: 4 mg Sodium Chloride (Saline Flush) 10 ml FLUSH ASDIRECTED PRN PRN Reason: Keep Vein Open Last Admin: 03/17/20 15:07 Dose: 10 ml Discontinued Medications Bupivacaine HCl/Epinephrine Bitart (Marcaine 0.5%/Epinephrine 1:200,000) Confirm Administered Dose 50 ml .ROUTE .STK-MED ONE Stop: 03/18/20 08:26 Hydromorphone HCl (Dilaudid) 0.5 mg IVPUSH ONETIME ONE Stop: 03/17/20 14:54 Last Admin: 03/17/20 15:03 Dose: 0.5 mg Hydromorphone HCl (Dilaudid) 0.5 mg IVPUSH ONETIME ONE Stop: 03/17/20 17:24 Last Admin: 03/17/20 17:27 Dose: 0.5 mg Hydromorphone HCl (Dilaudid) 0.5 mg IVPUSH ONETIME ONE Stop: 03/18/20 01:53 Last Admin: 03/18/20 02:08 Dose: 0.5 mg Sodium Chloride (Normal Saline) 1,000 mls @ 999 mls/hr IV ASDIRECTED [facility] Last Admin: 03/17/20 15:03 Dose: 999 mls/hr Sodium Chloride (Normal Saline) 1,000 mls @ 150 mls/hr IV ASDIRECTED [facility] Last Admin: 03/17/20 16:13 Dose: 150 mls/hr Piperacillin Sod/Tazobactam (Sod 4.5 gm/ Sodium Chloride) 100 mls @ 200 mls/hr IV ONETIME ONE Stop: 03/17/20 18:51 Last Admin: 03/17/20 18:39 Dose: 200 mls/hr Iopamidol (Isovue-300 (61%)) 100 ml IVPUSH ONETIME ONE Stop: 03/17/20 16:34 Last Admin: 03/17/20 16:58 Dose: 100 ml Iopamidol (Isovue-300 (61%)) 50 ml IVPUSH ONETIME ONE Stop: 03/17/20 16:34 Last Admin: 03/17/20 16:58 Dose: 25 ml Ondansetron HCl (Zofran) 4 mg IVPUSH ONETIME ONE Stop: 03/17/20 14:54 Last Admin: 03/17/20 15:03 Dose: 4 mg Ondansetron HCl (Zofran) 4 mg IVPUSH ONETIME ONE Stop: 03/17/20 16:08 Last Admin: 03/17/20 16:13 Dose: 4 mg Sodium Chloride (Saline Flush) 10 ml FLUSH ONETIME ONE Stop: 03/17/20 16:34 Last Admin: 03/17/20 16:58 Dose: 10 ml
[2020-03-18] MEDS ORDERED: Ketorolac 30 MG/ML SDV ONE (09:16)
[2020-03-18] MEDS ORDERED: Rocuronium 50 MG/5 ML Vial ONE ×2 (09:16→10:41)
[2020-03-18] MEDS ORDERED: fentaNYL 250 MCG/5 ML SDV ONE (09:16)
[2020-03-18] MEDS ORDERED: Propofol 200 MG/20 ML SDV ONE (09:16)
[2020-03-18] MEDS ORDERED: Dexamethasone 4 MG/ML 5 ML MDV ONE (09:16)
[2020-03-18] MEDS ORDERED: Ondansetron 4 MG/2 ML SDV ONE (09:16)
[2020-03-18] MEDS ORDERED: Lidocaine 1% 4 ML ONE (09:16)
[2020-03-18] MEDS ORDERED: Ketamine 500 mg/10 ML MDV ONE (09:18)
[2020-03-18] MEDS ORDERED: Esmolol 100 MG/10 ML SDV ONE (09:47)
[2020-03-18] MEDS ORDERED: Sodium Chloride 0.9% 10 ML Syringe FLUSH PRN (09:56)
[2020-03-18] MEDS ORDERED: Lidocaine 1%/Sod Bicarbonate in NS 8.4% 1 ML Syringe IDERM PRN (09:56)
[2020-03-18] MEDS ORDERED: Ondansetron 4 MG/2 ML SDV IVPUSH PRN (09:56)
[2020-03-18] MEDS ORDERED: fentaNYL 100 MCG/2 ML SDV IVPUSH PRN (09:56)
[2020-03-18] MEDS ORDERED: HYDROmorphone 0.5 MG/0.5 ML Syringe IVPUSH PRN (09:56)
[2020-03-18] MEDS ORDERED: Lactated Ringers 1,000 ML IV SCH (10:00)
--- NOTE | 2020-03-18 10:03 | PCM.PREANE ---
Preanesthetic Assessment - Procedure Proposed Procedure: Laparoscopic Cholecystectomy - Anesthesia/Transfusion/Family Hx Anesthesia History: Prior Anesthesia Without Reaction Family History of Anesthesia Reaction: No Transfusion History: No Prior Transfusion(s) - Review of Systems General: No Symptoms Pulmonary: No Symptoms, Other (30 year smoking history) Cardiovascular: No Symptoms, Other (METS > 4) Gastrointestinal: Abdominal Pain Neurological: No Symptoms Other: Reports: None - Physical Assessment NPO Status Date: 03/18/20 NPO Status Time: 00:00 Vital Signs: Last Vital Signs Temp 37.5 C 03/18/20 07:41 Pulse 106 H 03/18/20 07:54 Resp 24 H 03/18/20 07:41 BP 146/74 H 03/18/20 07:41 Pulse Ox 92 L 03/18/20 07:54 Height: 5 ft 11 in Weight: 110.813 kg ASA Class: 2E Mental Status: Alert & Oriented x3 Airway Class: Mallampati = 1 Dentition: Reports: Edentulous Thyro-Mental Finger Breadths: 3 Mouth Opening Finger Breadths: 3 ROM/Head Extension: Full Lungs: Normal Respiratory Effort, Rhonchi Cardiovascular: Regular Rate, Regular Rhythm - Lab Values: Laboratory Last Values WBC 11.54 K/mm3 (4.23-9.07) H 03/17/20 14:45 RBC 4.91 M/mm3 (4.63-6.08) 03/17/20 14:45 Hgb 14.6 gm/dl (13.7-17.5) 03/17/20 14:45 Hct 43.2 % (40.1-51.0) 03/17/20 14:45 MCV 88.0 fl (79.0-92.2) 03/17/20 14:45 MCH 29.7 pg (25.7-32.2) 03/17/20 14:45 MCHC 33.8 g/dl (32.2-35.5) 03/17/20 14:45 RDW Std Deviation 41.9 fL (35.1-43.9) 03/17/20 14:45 Plt Count 250 K/mm3 (163-337) 03/17/20 14:45 MPV 10.6 fl (9.4-12.3) 03/17/20 14:45 Neut % (Auto) 83.9 % (34.0-67.9) H 03/17/20 14:45 Lymph % (Auto) 9.8 % (21.8-53.1) L 03/17/20 14:45 [place] % (Auto) 4.9 % (5.3-12.2) L 03/17/20 14:45 Eos % (Auto) 1.0 (0.8-7.0) 03/17/20 14:45 Baso % (Auto) 0.2 % (0.1-1.2) 03/17/20 14:45 Neut # (Auto) 9.70 K/mm3 (1.78-5.38) H 03/17/20 14:45 Lymph # (Auto) 1.13 K/mm3 (1.32-3.57) L 03/17/20 14:45 [place] # (Auto) 0.56 K/mm3 (0.30-0.82) 03/17/20 14:45 Eos # (Auto) 0.11 K/mm3 (0.04-0.54) 03/17/20 14:45 Baso # (Auto) 0.02 K/mm3 (0.01-0.08) 03/17/20 14:45 Manual Slide Review Abnormal smear 03/17/20 14:45 Sodium 140 mEq/L (136-145) 03/17/20 14:45 Potassium 4.3 mEq/L (3.5-5.1) 03/17/20 14:45 Chloride 104 mEq/L (98-107) 03/17/20 14:45 Carbon Dioxide 25 mEq/L (21-32) 03/17/20 14:45 Anion Gap 15.3 (5-15) H 03/17/20 14:45 BUN 12 mg/dL (7-18) 03/17/20 14:45 Creatinine 1.0 mg/dL (0.7-1.3) 03/17/20 14:45 Est Cr Clr Drug Dosing 98.31 mL/min 03/17/20 14:45 Estimated GFR (MDRD) > 60 mL/min (>60) 03/17/20 14:45 BUN/Creatinine Ratio 12.0 (14-18) L 03/17/20 14:45 Glucose 125 mg/dL (74-106) H 03/17/20 14:45 Calcium 9.4 mg/dL (8.5-10.1) 03/17/20 14:45 Total Bilirubin 0.6 mg/dL (0.2-1.0) 03/17/20 14:45 GGT 98 U/L (15-85) H 03/17/20 14:58 AST 23 U/L (15-37) 03/17/20 14:45 ALT 40 U/L (16-63) 03/17/20 14:45 Alkaline Phosphatase 99 U/L (46-116) 03/17/20 14:45 Troponin I < 0.017 ng/mL (0.00-0.056) 03/17/20 14:58 C-Reactive Protein 3.8 mg/dL (<1.0) H* 03/17/20 14:45 Total Protein 7.6 g/dl (6.4-8.2) 03/17/20 14:45 Albumin 4.0 g/dl (3.4-5.0) 03/17/20 14:45 Globulin 3.6 gm/dL 03/17/20 14:45 Albumin/Globulin Ratio 1.1 (1-2) 03/17/20 14:45 Lipase 71 U/L (73-393) L 03/17/20 14:45 Urine Color Yellow (Yellow) 03/17/20 17:05 Urine Appearance Clear (Clear) 03/17/20 17:05 Urine pH 6.0 (5.0-8.0) 03/17/20 17:05 Ur Specific [place] 1.020 (1.005-1.030) 03/17/20 17:05 Urine Protein Negative (Negative) 03/17/20 17:05 Urine Glucose (UA) Negative (Negative) 03/17/20 17:05 Urine Ketones 3+ (Negative) H 03/17/20 17:05 Urine Occult Blood Trace-lysed (Negative) H 03/17/20 17:05 Urine Nitrite Negative (Negative) 03/17/20 17:05 Urine Bilirubin Negative (Negative) 03/17/20 17:05 Urine Urobilinogen 0.2 (0.2-1.0) 03/17/20 17:05 Ur Leukocyte Esterase Negative (Negative) 03/17/20 17:05 Urine RBC 0-5 /hpf (0-5) 03/17/20 17:05 Urine WBC 0-5 /hpf (0-5) 03/17/20 17:05 Ur Squamous Epith Cells 0-5 /hpf (0-5) 03/17/20 17:05 Urine Bacteria Occasional /hpf (FEW) 03/17/20 17:05 Urine Mucus Few /hpf (FEW) 03/17/20 17:05 SARS Virus RNA (PCR) Negative (NEGATIVE) 03/18/20 07:51 SARS-CoV-2 RNA (RT-PCR) Negative (NEGATIVE) 03/18/20 07:51 - Allergies Allergies/Adverse Reactions: Allergies Allergy/AdvReac Type Severity Reaction Status Date / Time No Known Allergies Allergy Verified 03/17/20 14:33 - Acknowledgements Anesthesia Type Planned: General Anesthesia Pt an Appropriate Candidate for the Planned Anesthesia: Yes Alternatives and Risks of Anesthesia Discussed w Pt/Guardian: Yes Pt/Guardian Understands and Agrees with Anesthesia Plan: Yes PreAnesthesia Questionnaire HEENT History: Reports: Sinusitis - Infectious Disease History Infectious Disease History: Reports: Chicken Pox - Past Surgical History HEENT Surgical History: Reports: Oral Surgery - SUBSTANCE USE Smoking Status *Q: Current Every Day Smoker Tobacco Use Within Last Twelve Months: Cigarettes Recreational Drug Use History: No - HOME MEDS Home Medications: Home Meds Ibuprofen 200 mg PO Q4H PRN 03/18/20 [History] Non-Formulary Medication [NF Drug] 1 tab PO ASDIRECTED PRN 03/18/20 [History] oxyCODONE 5 mg PO Q4H PRN #10 tab 03/18/20 [Rx] - CURRENT (IN HOUSE) MEDS Current Meds: Current Medications Fentanyl (Sublimaze) 50 mcg IVPUSH Q5M PRN PRN Reason: Pain Hydromorphone HCl (Dilaudid) 0.5 mg IVPUSH Q10M PRN PRN Reason: Pain (severe 7-10) Lactated Ringer's (Ringers, Lactated) 1,000 mls @ 100 mls/hr IV ASDIRECTED [facility] Last Admin: 03/18/20 08:01 Dose: 100 mls/hr Piperacillin Sod/Tazobactam (Sod 4.5 gm/ Sodium Chloride) 100 mls @ 25 mls/hr IV Q8H [facility] Last Admin: 03/18/20 03:57 Dose: 25 mls/hr Lactated Ringer's (Ringers, Lactated) 1,000 mls @ 125 mls/hr IV ASDIRECTED [facility] Lidocaine/Sodium Bicarbonate (Buffered Lidocaine 1% In Ns 8.4%) 0.25 ml IDERM ONETIME PRN PRN Reason: Prior to IV Start Morphine Sulfate (Morphine) 1 mg IVPUSH Q2H PRN PRN Reason: Pain Last Admin: 03/18/20 08:32 Dose: 1 mg Ondansetron HCl (Zofran) 4 mg IVPUSH Q6H PRN PRN Reason: Nausea Last Admin: 03/17/20 21:46 Dose: 4 mg Ondansetron HCl (Zofran) 4 mg IVPUSH ONETIME PRN PRN Reason: Nausea/Vomiting Sodium Chloride (Saline Flush) 10 ml FLUSH ASDIRECTED PRN PRN Reason: Keep Vein Open Last Admin: 03/17/20 15:07 Dose: 10 ml Sodium Chloride (Saline Flush) 10 ml FLUSH ASDIRECTED PRN PRN Reason: Keep Vein Open Discontinued Medications Bupivacaine HCl/Epinephrine Bitart (Marcaine 0.5%/Epinephrine 1:200,000) Confirm Administered Dose 50 ml .ROUTE .STK-MED ONE Stop: 03/18/20 08:26 Dexamethasone (Dexamethasone) Confirm Administered Dose 20 mg .ROUTE .STK-MED ONE Stop: 03/18/20 09:17 Esmolol HCl (Esmolol) Confirm Administered Dose 100 mg .ROUTE .STK-MED ONE Stop: 03/18/20 09:48 Fentanyl (Sublimaze) Confirm Administered Dose 250 mcg .ROUTE .STK-MED ONE Stop: 03/18/20 09:17 Glycopyrrolate () Confirm Administered Dose 1 mg .ROUTE .STK-MED ONE Stop: 03/18/20 09:17 Hydromorphone HCl (Dilaudid) 0.5 mg IVPUSH ONETIME ONE Stop: 03/17/20 14:54 Last Admin: 03/17/20 15:03 Dose: 0.5 mg Hydromorphone HCl (Dilaudid) 0.5 mg IVPUSH ONETIME ONE Stop: 03/17/20 17:24 Last Admin: 03/17/20 17:27 Dose: 0.5 mg Hydromorphone HCl (Dilaudid) 0.5 mg IVPUSH ONETIME ONE Stop: 03/18/20 01:53 Last Admin: 03/18/20 02:08 Dose: 0.5 mg Sodium Chloride (Normal Saline) 1,000 mls @ 999 mls/hr IV ASDIRECTED [facility] Last Admin: 03/17/20 15:03 Dose: 999 mls/hr Sodium Chloride (Normal Saline) 1,000 mls @ 150 mls/hr IV ASDIRECTED [facility] Last Admin: 03/17/20 16:13 Dose: 150 mls/hr Piperacillin Sod/Tazobactam (Sod 4.5 gm/ Sodium Chloride) 100 mls @ 200 mls/hr IV ONETIME ONE Stop: 03/17/20 18:51 Last Admin: 03/17/20 18:39 Dose: 200 mls/hr Lidocaine HCl (Xylocaine-Mpf 1%) Confirm Administered Dose 4 mls @ as directed .ROUTE .STK-MED ONE Stop: 03/18/20 09:17 Iopamidol (Isovue-300 (61%)) 100 ml IVPUSH ONETIME ONE Stop: 03/17/20 16:34 Last Admin: 03/17/20 16:58 Dose: 100 ml Iopamidol (Isovue-300 (61%)) 50 ml IVPUSH ONETIME ONE Stop: 03/17/20 16:34 Last Admin: 03/17/20 16:58 Dose: 25 ml Ketamine HCl (Ketalar) Confirm Administered Dose 500 mg .ROUTE .STK-MED ONE Stop: 03/18/20 09:19 Ketorolac Tromethamine (Toradol) Confirm Administered Dose 30 mg .ROUTE .STK- MED ONE Stop: 03/18/20 09:17 Ondansetron HCl (Zofran) 4 mg IVPUSH ONETIME ONE Stop: 03/17/20 14:54 Last Admin: 03/17/20 15:03 Dose: 4 mg Ondansetron HCl (Zofran) 4 mg IVPUSH ONETIME ONE Stop: 03/17/20 16:08 Last Admin: 03/17/20 16:13 Dose: 4 mg Ondansetron HCl (Zofran) Confirm Administered Dose 4 mg .ROUTE .STK-MED ONE Stop: 03/18/20 09:17 Propofol (Diprivan 20 Ml) Confirm Administered Dose 200 mg .ROUTE .STK-MED ONE Stop: 03/18/20 09:17 Rocuronium [place] (Zemuron) Confirm Administered Dose 50 mg .ROUTE .STK-MED ONE Stop: 03/18/20 09:17 Sodium Chloride (Saline Flush) 10 ml FLUSH ONETIME ONE Stop: 03/17/20 16:34 Last Admin: 03/17/20 16:58 Dose: 10 ml
[2020-03-18] MEDS ORDERED: Morphine 10 MG/ML SDV ONE (10:16)
[2020-03-18] MEDS ORDERED: Labetalol 100 MG/20 ML MDV ONE (10:25)
[2020-03-18] MEDS ORDERED: fentaNYL 100 MCG/2 ML SDV ONE (11:12)
--- NOTE | 2020-03-18 11:52 | PCM.POSTAN ---
POST ANESTHESIA ASSESSMENT - MENTAL STATUS Mental Status: Somnolent, Disoriented - VITAL SIGNS Vital Signs: Last Vital Signs Temp 37.0 C 03/18/20 11:45 Pulse 94 03/18/20 11:45 Resp 25 H 03/18/20 11:45 BP 142/86 H 03/18/20 11:45 Pulse Ox 100 03/18/20 11:47 - RESPIRATORY Respiratory Status: Airway Patent, O2 Saturation Stable, Elevated Respiratory Rate (Patient had baseline elevated RR with rhonci preoperatively. Presumptive baseline.) - CARDIOVASCULAR CV Status: Pulse Rate WNL, Blood Pressure Stable, Other (Patient with tachycardia during case that improved with fluids and beta brendan.) - GASTROINTESTINAL GI Status: No Symptoms - POST OP HYDRATION Hydration Status: Adequate & Stable - OBSERVATIONS Free Text/Narrative:: Routine extubation in OR without event. Patient desaturates and recovers easily with oxygen therapy. Baseline rhonci and tachypnea. Patient with some disorientation post-operatively in PACU. Allowing patient to sleep for now. Will continue to observe RR, HR, and quality of respirations, as well as orientation prior to discharge back to floor.
[2020-03-18] MEDS ORDERED: HYDROmorphone 1 MG/ML Syringe IVPUSH PRN (19:32)
[2020-03-18] MEDS: oxyCODONE 5 MG Tab PO PRN (20:24)
[2020-03-19] MEDS ORDERED: Aluminum Hydroxide/Magnesium Hydroxide/Simethicone Susp 30 ML Cup PO ONE (03:38)
[2020-03-19] MEDS: oxyCODONE 5 MG Tab PO PRN ×2 (04:09→12:00)
--- NOTE | 2020-03-19 07:39 | PCM48HPAN ---
Post Anesthesia Note - EVALUATION WITHIN 48HRS OF ANESTHETIC Vital Signs in Normal Range: Yes Patient Participated in Evaluation: Yes Respiratory Function Stable: Yes Airway Patent: Yes Cardiovascular Function Stable: Yes Hydration Status Stable: Yes Pain Control Satisfactory: Yes Nausea and Vomiting Control Satisfactory: Yes Mental Status Recovered: Yes Vital Signs: Last Vital Signs Temp 98.8 F 03/19/20 04:06 Pulse 92 03/19/20 04:06 Resp 17 03/19/20 04:06 BP 148/89 H 03/19/20 04:06 Pulse Ox 90 L 03/19/20 04:06 - COMMENTS/OBSERVATIONS Free Text/Narrative:: In bed with oxygen NC on. No complaints- pain on and off
[2020-03-19] MEDS: Ondansetron 4 MG/2 ML SDV IVPUSH PRN (08:57)
--- NOTE | 2020-03-19 09:04 | PCM.DCSUM1 ---
Discharge Summary - Hospital Course Free Text/Narrative:: Patient underwent laparoscopic cholecystectomy for acute cholecystitis yesterday. He had discharge orders placed, but ended up staying one more night due to issues with pain control, urinary retention, increased oxygen requirement. Diagnosis: Stroke: No - Discharge Data Discharge Date: 03/19/20 Discharge Disposition: Home, Self-Care 01 Condition: Good - Referral to Home Health Primary Care Physician: PCP None - Patient Summary/Data Operative Procedure(s) Performed: laparoscopic cholecystectomy Complications: urinary retention/ bladder stretch injury Recommended Follow-up Testing/Procedures: Patient will require follow up in a urology clinic in one week for miguel catheter removal and trial of void. Hospital Course: Admitted from the ER on 03/17 with abdominal pain and findings of acute calculous cholecystitis. He underwent laparoscopic cholecystectomy on 03/19. Although discharge was planned yesterday, the patient was slow to recover from surgery. He had issues with post-op pain, and had urinary retention of over 1L when he was bladder scanned 6 hours after anesthesia. A miguel catheter was replaced for treatment of bladder stretch injury. The following day, his pain was better controlled. He was tolerating a diet and deemed fit for discharge at that time. - Patient Instructions Diet: Regular Diet as Tolerated Activity: No Lifting Over 10 Pounds Showering/Bathing: May Shower Wound/Incision Care: Keep Operative Site/Wound Site Clean and Dry Notify Provider of: Fever, Increased Pain, Swelling and Redness, Drainage, Nausea and/or Vomiting Other/Special Instructions: Maintain urinary catheter in place until scheduled follow up in the urology clinic in about one week. Call your doctor or come to the emergency room if the catheter is inadvertently removed before then. - Discharge Plan *PRESCRIPTION DRUG MONITORING PROGRAM REVIEWED*: Not Applicable *COPY OF PRESCRIPTION DRUG MONITORING REPORT IN PATIENT GERMAN: Not Applicable Prescriptions/Med Rec: oxyCODONE 5 mg PO Q4H PRN #10 tab PRN Reason: Pain Home Medications: Home Meds Cetirizine [ZyrTEC] 10 mg PO DAILY 03/18/20 [History] Ibuprofen 200 mg PO Q4H PRN 03/18/20 [History] oxyCODONE 5 mg PO Q4H PRN #10 tab 03/18/20 [Rx] Oxygen Therapy Mode: Room Air Patient Handouts: Laparoscopic Cholecystectomy, Care After Forms: ED Department Discharge Referrals: PCP,None [Primary Care Provider] - - Discharge Summary/Plan Comment DC Time >30 min.: Yes Discharge Summary/Plan Comment: Discharge to home with miguel catheter in place. Plan for urology follow up and catheter removal in about one week. Plan for post-op follow up in [facility] in about 2 weeks. Prescriptions for oxycodone and tamsulosin sent to patient's pharmacy. - Patient Data Vitals - Most Recent: Last Vital Signs Temp 37.1 C 03/19/20 04:06 Pulse 92 03/19/20 04:06 Resp 17 03/19/20 04:06 BP 148/89 H 03/19/20 04:06 Pulse Ox 90 L 03/19/20 04:06 Weight - Most Recent: 111.085 kg I&O - Last 24 hours: Intake & Output 03/18/20 03/19/20 03/19/20 22:59 06:59 14:59 Intake Total 900 1277 Output Total 2200 1850 Balance -1300 -573 Lab Results - Last 24 hrs: Laboratory Results - last 24 hr 03/18/20 Range/Units 07:51 SARS Virus RNA (PCR) Negative (NEGATIVE) Med Orders - Current: Current Medications Lidocaine/Sodium Bicarbonate (Buffered Lidocaine 1% In Ns 8.4%) 0.25 ml IDERM ONETIME PRN PRN Reason: Prior to IV Start Ondansetron HCl (Zofran) 4 mg IVPUSH Q6H PRN PRN Reason: Nausea Last Admin: 03/19/20 08:57 Dose: 4 mg Oxycodone HCl (Oxycodone) 5 mg PO Q4H PRN PRN Reason: Pain Last Admin: 03/19/20 04:09 Dose: 5 mg Sodium Chloride (Saline Flush) 10 ml FLUSH ASDIRECTED PRN PRN Reason: Keep Vein Open Last Admin: 03/17/20 15:07 Dose: 10 ml Discontinued Medications Al Hydroxide/Mg Hydroxide (Mag-Al Plus) 30 ml PO ONETIME ONE Stop: 03/19/20 03:39 Last Admin: 03/19/20 03:57 Dose: 30 ml Bupivacaine HCl/Epinephrine Bitart (Marcaine 0.5%/Epinephrine 1:200,000) Confirm Administered Dose 50 ml .ROUTE .STK-MED ONE Stop: 03/18/20 08:26 Last Admin: 03/18/20 09:57 Dose: 30 ml Dexamethasone (Dexamethasone) Confirm Administered Dose 20 mg .ROUTE .STK-MED ONE Stop: 03/18/20 09:17 Esmolol HCl (Esmolol) Confirm Administered Dose 100 mg .ROUTE .STK-MED ONE Stop: 03/18/20 09:48 Fentanyl (Sublimaze) Confirm Administered Dose 250 mcg .ROUTE .STK-MED ONE Stop: 03/18/20 09:17 Fentanyl (Sublimaze) 50 mcg IVPUSH Q5M PRN PRN Reason: Pain Fentanyl (Sublimaze) Confirm Administered Dose 100 mcg .ROUTE .STK-MED ONE Stop: 03/18/20 11:13 Glycopyrrolate () Confirm Administered Dose 1 mg .ROUTE .STK-MED ONE Stop: 03/18/20 09:17 Hydromorphone HCl (Dilaudid) 0.5 mg IVPUSH ONETIME ONE Stop: 03/17/20 14:54 Last Admin: 03/17/20 15:03 Dose: 0.5 mg Hydromorphone HCl (Dilaudid) 0.5 mg IVPUSH ONETIME ONE Stop: 03/17/20 17:24 Last Admin: 03/17/20 17:27 Dose: 0.5 mg Hydromorphone HCl (Dilaudid) 0.5 mg IVPUSH ONETIME ONE Stop: 03/18/20 01:53 Last Admin: 03/18/20 02:08 Dose: 0.5 mg Hydromorphone HCl (Dilaudid) 0.5 mg IVPUSH Q10M PRN PRN Reason: Pain (severe 7-10) Hydromorphone HCl (Dilaudid) 1 mg IVPUSH Q4H PRN PRN Reason: Pain (severe 7-10) Sodium Chloride (Normal Saline) 1,000 mls @ 999 mls/hr IV ASDIRECTED [facility] Last Admin: 03/17/20 15:03 Dose: 999 mls/hr Sodium Chloride (Normal Saline) 1,000 mls @ 150 mls/hr IV ASDIRECTED [facility] Last Admin: 03/17/20 16:13 Dose: 150 mls/hr Piperacillin Sod/Tazobactam (Sod 4.5 gm/ Sodium Chloride) 100 mls @ 200 mls/hr IV ONETIME ONE Stop: 03/17/20 18:51 Last Admin: 03/17/20 18:39 Dose: 200 mls/hr Lactated Ringer's (Ringers, Lactated) 1,000 mls @ 100 mls/hr IV ASDIRECTED [facility] Last Infusion: 03/18/20 19:46 Dose: Infused Piperacillin Sod/Tazobactam (Sod 4.5 gm/ Sodium Chloride) 100 mls @ 25 mls/hr IV Q8H [facility] Last Admin: 03/18/20 12:29 Dose: 25 mls/hr Lidocaine HCl (Xylocaine-Mpf 1%) Confirm Administered Dose 4 mls @ as directed .ROUTE .STK-MED ONE Stop: 03/18/20 09:17 Lactated Ringer's (Ringers, Lactated) 1,000 mls @ 125 mls/hr IV ASDIRECTED [facility] Iopamidol (Isovue-300 (61%)) 100 ml IVPUSH ONETIME ONE Stop: 03/17/20 16:34 Last Admin: 03/17/20 16:58 Dose: 100 ml Iopamidol (Isovue-300 (61%)) 50 ml IVPUSH ONETIME ONE Stop: 03/17/20 16:34 Last Admin: 03/17/20 16:58 Dose: 25 ml Ketamine HCl (Ketalar) Confirm Administered Dose 500 mg .ROUTE .STK-MED ONE Stop: 03/18/20 09:19 Ketorolac Tromethamine (Toradol) Confirm Administered Dose 30 mg .ROUTE .STK- MED ONE Stop: 03/18/20 09:17 Labetalol HCl (Normodyne) Confirm Administered Dose 100 mg .ROUTE .STK-MED ONE Stop: 03/18/20 10:26 Morphine Sulfate (Morphine) 1 mg IVPUSH Q2H PRN PRN Reason: Pain Last Admin: 03/18/20 17:08 Dose: 1 mg Morphine Sulfate (Morphine) Confirm Administered Dose 10 mg .ROUTE .STK-MED ONE Stop: 03/18/20 10:17 Neostigmine Methylsulfate (Neostigmine Methylsulfate) Confirm Administered Dose 5 mg .ROUTE .STK-MED ONE Stop: 03/18/20 10:52 Ondansetron HCl (Zofran) 4 mg IVPUSH ONETIME ONE Stop: 03/17/20 14:54 Last Admin: 03/17/20 15:03 Dose: 4 mg Ondansetron HCl (Zofran) 4 mg IVPUSH ONETIME ONE Stop: 03/17/20 16:08 Last Admin: 03/17/20 16:13 Dose: 4 mg Ondansetron HCl (Zofran) Confirm Administered Dose 4 mg .ROUTE .STK-MED ONE Stop: 03/18/20 09:17 Ondansetron HCl (Zofran) 4 mg IVPUSH ONETIME PRN PRN Reason: Nausea/Vomiting Propofol (Diprivan 20 Ml) Confirm Administered Dose 200 mg .ROUTE .STK-MED ONE Stop: 03/18/20 09:17 Rocuronium Ancram (Zemuron) Confirm Administered Dose 50 mg .ROUTE .STK-MED ONE Stop: 03/18/20 09:17 Rocuronium Ancram (Zemuron) Confirm Administered Dose 50 mg .ROUTE .STK-MED ONE Stop: 03/18/20 10:42 Sodium Chloride (Saline Flush) 10 ml FLUSH ONETIME ONE Stop: 03/17/20 16:34 Last Admin: 03/17/20 16:58 Dose: 10 ml Sodium Chloride (Saline Flush) 10 ml FLUSH ASDIRECTED PRN PRN Reason: Keep Vein Open
== END 2020-03-19 12:05 | disposition home or self-care (01) ==
LOC: JD.ED 14:13 → JD.MS 18:27
PROVIDERS: ADMIT Surgery; ATTEND Surgery
DX: K80.00 Calculus of gallbladder with acute cholecystitis without obstruction (principal); F17.210 Nicotine dependence, cigarettes, uncomplicated; Z11.59 Encounter for screening for other viral diseases; Z79.899 Other long term (current) drug therapy
CPT/HCPCS: 36415; 47562; 51701; 51702; 51798; 74177; 76705; 80053; 81001; 82977; 83690; 84484; 85025; 86140; 87635; 93005; 94760; 96361; 96365; 96366; 96375; 96376; 99285; A9270; G0378; J1100; J1170; J2001; J2270; J2405; J2543; J2704; J2710; J3010; J3490; J7030; J7050; J7120; Q9967; 00790; 99284; J1885; U0002

== ENCOUNTER 2020-03-22 04:45 | Observation (INO) | payer SELFPAY ==
[2020-03-22] MEDS ORDERED: Ondansetron 4 MG/2 ML SDV IVPUSH ONE (05:14)
[2020-03-22] MEDS ORDERED: HYDROmorphone 1 MG/ML Syringe IVPUSH STA (05:14)
[2020-03-22] MEDS ORDERED: Sodium Chloride 0.9% 1,000 ML IV SCH (05:15)
[2020-03-22] MEDS ORDERED: Sodium Chloride 0.9% 10 ML Syringe FLUSH PRN (05:16)
--- NOTE | 2020-03-22 05:24 | EDM.PDOC ---
<Rahul Espana Yosi - Last Filed: 03/22/20 07:12> ED HPI GENERAL MEDICAL PROBLEM - General Chief Complaint: Gastrointestinal Problem Stated Complaint: [facility] Time Seen by Provider: 03/22/20 05:02 Source of Information: Reports: Patient, Old Records (Admission 03/17/2020) History Limitations: Reports: No Limitations - History of Present Illness INITIAL COMMENTS - FREE TEXT/NARRATIVE: Mr. Mace is a pleasant 44-year-old man with no significant past medical history, who, medical records indicate, was seen in this ED on 03/17/2020 with generalized abdominal pain radiating through to his back, along with nausea and vomiting. A work-up found sludge in his gallbladder along with 2 gallstones, including 1 in the neck, with mild gallbladder wall thickening, consistent with early cholecystitis. He was admitted to the hospital, and went to the OR on , where he underwent a difficult cholecystectomy. He was discharged home on 03/19/2020. The patient now presents the ED by EMS stating that he woke up around 2:00 this morning with generalized abdominal pain that radiates through to his mid back. He took an oxycodone and went back to sleep, but was again woken around 4:00 this morning with even worse pain. He states that his current pain is virtually identical to the pain he experienced prior to his cholecystectomy. No associated fever, nausea, vomiting, or diarrhea. Here in the ED, the patient's initial BP is elevated at 164/121, otherwise, he is hemodynamically stable, afebrile, saturating at 96% on room air. The patient states that he last ate around 22:30. The patient states that he has an appointment to follow-up with his surgeon next week. The patient does not have a PCP. His Surgeon is Dr. Zay Gordon. abdomen Pain Score (Numeric/FACES): 10 - Related Data Allergies Allergy/AdvReac Type Severity Reaction Status Date / Time No Known Allergies Allergy Verified 03/22/20 04:50 Home Meds: Home Meds Cetirizine [ZyrTEC] 10 mg PO DAILY 03/18/20 [History] Ibuprofen 200 mg PO Q4H PRN 03/18/20 [History] oxyCODONE 5 mg PO Q4H PRN #10 tab 03/18/20 [Rx] Tamsulosin [Flomax] 0.4 mg PO DAILY #10 cap.er 03/19/20 [Rx] oxyCODONE HCl [Oxycodone HCl] 5 mg PO Q4H PRN #10 capsule 03/22/20 [Rx] Past Medical History Genitourinary History: Reports: BPH - Infectious Disease History Infectious Disease History: Reports: Chicken Pox - Past Surgical History HEENT Surgical History: Reports: Oral Surgery (Edentulous) GI Surgical History: Reports: Cholecystectomy (03/18/2020) Social & Family History - Family History Family Medical History: Noncontributory - Tobacco Use Smoking Status *Q: Current Every Day Smoker Years of Tobacco use: 33 Packs/Tins Daily: 0.8 Packs/Tins Daily Comment: Down from 2 ppd - Caffeine Use Caffeine Use: Reports: None Caffeine Use Comment: 2 energy drinks/day - Alcohol Use Alcohol Use History: No - Recreational Drug Use Recreational Drug Use: Yes Drug Use in Last 12 Months: No Recreational Drug Type: Reports: Marijuana/Hashish (last smoked around 1999) - Living Situation & Occupation Living situation: Reports: , with Spouse, with Family (1 child) Occupation: Unemployed (Laid off [employer]) ED ROS GENERAL - Review of Systems Review Of Systems: Comprehensive ROS is negative, except as noted in HPI. ED EXAM, GI/ABD - Physical Exam Exam: See Below Exam Limited By: No Limitations General Appearance: Alert, WD/WN, Anxious Eyes: Bilateral: Normal Appearance, EOMI Ears: Normal External Exam, Hearing Grossly Normal Nose: Normal Inspection Throat/Mouth: Normal Inspection, Normal Lips, Normal Voice, No Airway Compromise Head: Atraumatic, Normocephalic Neck: Normal Inspection, Full Range of Motion Respiratory/Chest: No Respiratory Distress, Lungs Clear, Normal Breath Sounds, No Accessory Muscle Use Cardiovascular: Normal Peripheral Pulses, Regular Rate, Rhythm, No Edema, No Gallop, No JVD, No Murmur, No Rub GI/Abdominal Exam: Normal Bowel Sounds, Soft, No Organomegaly, No Distention, No Abnormal Bruit, No Mass, Tender (Generalized, but particularly tender to the right abdomen and right upper quadrant; less tender to the left abdomen), Other (Laparoscopic surgical wounds appear to be healing appropriately) (Male) Exam: Other (Olvera catheter to leg bag) Rectal (Males) Exam: Deferred Back Exam: Normal Inspection, Full Range of Motion. No: CVA Tenderness (L), CVA Tenderness (R) Extremities: Normal Inspection, Normal Range of Motion, No Pedal Edema, Normal Capillary Refill Neurological: Alert, Oriented, Normal Cognition, No Motor/Sensory Deficits Psychiatric: Anxious Skin Exam: Warm, Dry, Intact, Normal Color, No Rash Course - Vital Signs Last Recorded V/S: Last Vital Signs Temp 36.8 C 03/22/20 04:47 Pulse 96 03/22/20 04:47 Resp 18 03/22/20 04:47 BP 164/121 H 03/22/20 04:47 Pulse Ox 96 03/22/20 04:47 - Orders/Labs/Meds Orders: Active Orders 24 hr Category Date Time Status Incentive Spirometry [RT Incentive Spirometry] [] Care 03/22/20 09:01 Active ASDIRECTED Peripheral IV Care [] . DIRECTED Care 03/22/20 05:16 Active Sodium Chloride 0.9% [Normal Saline] 1,000 ml Med 03/22/20 05:15 Active IV ASDIRECTED Sodium Chloride 0.9% [Saline Flush] Med 03/22/20 05:16 Active 10 ml FLUSH ASDIRECTED PRN Peripheral IV Insertion Adult [OM.PC] Routine Oth 03/22/20 05:16 Ordered Medication Orders Sodium Chloride (Normal Saline) 1,000 mls @ 150 mls/hr IV ASDIRECTED [facility] Last Admin: 03/22/20 05:31 Dose: 150 mls/hr Sodium Chloride (Saline Flush) 10 ml FLUSH ASDIRECTED PRN PRN Reason: Keep Vein Open Last Admin: 03/22/20 05:59 Dose: 10 ml Labs: Laboratory Tests 03/22/20 03/22/20 Range/Units 05:25 05:25 WBC 10.55 H (4.23-9.07) K/mm3 RBC 4.40 L (4.63-6.08) M/mm3 Hgb 13.2 L (13.7-17.5) gm/dl Hct 39.0 L (40.1-51.0) % MCV 88.6 (79.0-92.2) fl MCH 30.0 (25.7-32.2) pg MCHC 33.8 (32.2-35.5) g/dl RDW Std Deviation 41.8 (35.1-43.9) fL Plt Count 288 (163-337) K/mm3 MPV 10.1 (9.4-12.3) fl Neutrophils % (Manual) 73 H (40-60) % Band Neutrophils % 0 (0-10) % Lymphocytes % (Manual) 19 L (20-40) % Atypical Lymphs % 0 % Monocytes % (Manual) 6 (2-10) % Eosinophils % (Manual) 2 (0.8-7.0) % Basophils % (Manual) 0 L (0.2-1.2) Platelet Estimate Adequate RBC Morph Comment Normal Sodium 142 (136-145) mEq/L Potassium 3.7 (3.5-5.1) mEq/L Chloride 104 (98-107) mEq/L Carbon Dioxide 23 (21-32) mEq/L Anion Gap 18.7 H (5-15) BUN 12 (7-18) mg/dL Creatinine 1.0 (0.7-1.3) mg/dL Est Cr Clr Drug Dosing 81.72 mL/min Estimated GFR (MDRD) > 60 (>60) mL/min BUN/Creatinine Ratio 12.0 L (14-18) Glucose 136 H (74-106) mg/dL Calcium 9.1 (8.5-10.1) mg/dL Magnesium 1.6 L (1.8-2.4) mg/dl Total Bilirubin 0.6 (0.2-1.0) mg/dL AST 27 (15-37) U/L ALT 99 H (16-63) U/L Alkaline Phosphatase 94 (46-116) U/L Total Protein 6.7 (6.4-8.2) g/dl Albumin 3.0 L (3.4-5.0) g/dl Globulin 3.7 gm/dL Albumin/Globulin Ratio 0.8 L (1-2) Lipase 49 L (73-393) U/L Meds: Medications Generic Name Dose Route Start Last Admin Trade Name Freq PRN Reason Stop Dose Admin Sodium Chloride 1,000 mls @ 150 mls/hr 03/22/20 05:15 03/22/20 05:31 Normal Saline IV 150 mls/hr ASDIRECTED ROSA Administration Sodium Chloride 10 ml 03/22/20 05:16 03/22/20 05:59 Saline Flush FLUSH 10 ml ASDIRECTED PRN Administration Keep Vein Open Discontinued Medications Generic Name Dose Route Start Last Admin Trade Name Mariajose PRN Reason Stop Dose Admin Hydromorphone HCl 1 mg 03/22/20 05:14 03/22/20 05:32 Dilaudid IVPUSH 03/22/20 05:15 1 mg ONETIME STA Administration Hydromorphone HCl 1 mg 03/22/20 06:53 03/22/20 06:58 Dilaudid IVPUSH 03/22/20 06:54 1 mg ONETIME ONE Administration Magnesium Sulfate 2 gm/ Premix 50 mls @ 25 mls/hr 03/22/20 06:13 03/22/20 06: 20 IV 03/22/20 08:12 25 mls/hr ONETIME ONE Administration Ondansetron HCl 4 mg 03/22/20 05:14 03/22/20 05:32 Zofran IVPUSH 03/22/20 05:15 4 mg ONETIME ONE Administration - Re-Assessments/Exams Free Text/Narrative Re-Assessment/Exam: 03/22/20 05:17 As above, the patient underwent a laparoscopic cholecystectomy on 03/18/2020, and now presents to the ED with increased general abdominal pain. On examination, he has bowel sounds, but is very tender, particularly to his right abdomen. I have ordered a work-up that includes blood work and a CT scan of his abdomen and pelvis with oral and IV contrast. In the meantime, the patient will be given IV Dilaudid, IV Zofran, and IV fluid. 03/22/20 06:13 The patient's CMP is remarkable for a blood glucose mildly elevated at 136, and an ALT mildly elevated at 99 with an AST normal at 27. The remainder of his CMP is unremarkable. His magnesium level is depressed at 1.6. His lipase level is within normal limits at 49. Based on the above, I have ordered a 2 g Mg-rider. 03/22/20 07:13 The patient CBC is remarkable for a WBC count mildly elevated at 10.55, but with 0% bandemia. His H/H is mildly depressed at 13.2/39.0, with the remainder of his CBC being unremarkable. The patient has returned from CT, but the CT report is still pending. Case discussed with Dr. Cam, and care of the patient turned over to him at this time, for change of shift. Departure - Departure Disposition: Home, Self-Care 01 Clinical Impression: Acute post-operative pain - Discharge Information Prescriptions: oxyCODONE HCl [Oxycodone HCl] 5 mg PO Q4H PRN #10 capsule PRN Reason: Abdominal Pain Instructions: Pain Medicine Instructions, [id number], Preventing Constipation After Surgery Referrals: PCP,None [Primary Care Provider] - Forms: ED Department Discharge Additional Instructions: Return to the emergency room with any questions problems or worsening symptoms. Follow-up with Dr. Gordon as scheduled. I have sent a prescription for more oxycodone to the clinic pharmacy take 1 every 4 hours as needed. Your pain is common after having this type of procedure. It should get better fairly quickly, however you may have some residual intermittent milder pains that could continue for up to a week. Every couple hours while you are awake take some deep breaths then and then slowly let them out. Do this least 2 times every couple of hours. Quit smoking. Sepsis Event Note - Evaluation Sepsis Screening Result: No Definite Risk - Focused Exam Vital Signs: Vital Signs Temp Pulse Resp BP Pulse Ox 03/22/20 04:47 36.8 C 96 18 164/121 H 96 Date Exam was Performed: 03/22/20 Time Exam was Performed: 07:13 - My Orders Last 24 Hours: My Active Orders 03/22/20 09:01 Incentive Spirometry [RT Incentive Spirometry] [RC] ASDIRECTED - Assessment/Plan Last 24 Hours: My Active Orders 03/22/20 09:01 Incentive Spirometry [RT Incentive Spirometry] [RC] ASDIRECTED <Eduardo Cam - Last Filed: 03/22/20 11:30> Course - Re-Assessments/Exams Free Text/Narrative Re-Assessment/Exam: 03/22/20 08:10 Patient is a CAT scan did come back no real acute changes noted he is got some bibasilar atelectasis. I did discuss this with the patient and advised him to do deep breathing exercises. He is got a small amount of fluid and air within the gallbladder fossa normal postoperative changes. When I discussed the situation with the patient he describes the pain that goes into his back and up to his scapula on the right side. I have advised him this is not uncommon for the procedure he had done and it should get better and improve over time. I did discuss situation with Dr. Gordon, the patient surgeon, and given his fairly normal lab work no specific abnormalities on CT, we both agree this is postoperative pain often seen with the procedure he had done. He has 2 or 3 of his oxycodone left we will give him another 10 to the clinic pharmacy. Patient is follow-up this next week with Dr. Gordon. 03/22/20 08:59 Patient has received his last pain medication couple hours ago. He was given Dilaudid 1 mg and received another milligram of Dilaudid prior to this. His resting saturation are in the upper 80s sometimes as low as 85%. We will have respiratory therapy come by and start incentive spirometry. 03/22/20 10:24 We had difficulty maintaining reasonable O2 saturation. At times on room air he will drop to 85% often stays in the 86 to 87% range. We have tried incentive spirometry as he does have some atelectasis in his lung bases. I discussed the situation with Dr. Gordon who will swing by after his next surgical case. After this we will come up with a more definitive disposition. I did listen to his lungs and he has bibasilar crackles worse on the left poor inspiratory ability at this time. Check a chest x-ray 03/22/20 10:57 Chest x-ray shows really poor inspiration no obvious infiltrate awaiting formal radiology read. 03/22/20 11:29 I discussed the situation with Dr. Bonner, our hospitalist, who will evaluate the patient for further disposition. Departure - Departure Time of Disposition: 08:12 Sepsis Event Note - Focused Exam Date Exam was Performed: 03/22/20 Time Exam was Performed: 11:29 - My Orders Last 24 Hours: My Active Orders 03/22/20 09:01 Incentive Spirometry [RT Incentive Spirometry] [RC] ASDIRECTED - Assessment/Plan Last 24 Hours: My Active Orders 03/22/20 09:01 Incentive Spirometry [RT Incentive Spirometry] [RC] ASDIRECTED
[2020-03-22] MEDS ORDERED: Magnesium Sulfate/Water 2 GM in Premix Bag 1 BAG IV ONE (06:13)
[2020-03-22] MEDS ORDERED: HYDROmorphone 1 MG/ML Syringe IVPUSH ONE (06:53)
--- NOTE | 2020-03-22 07:17 | CT ---
CT abdomen and pelvis Technique: Multiple axial sections were obtained from above the dome of the diaphragm inferiorly through the pubic symphysis. Intravenous and oral contrast has been given. Comparison: Previous right upper quadrant abdominal ultrasound 03/17/[address] abdomen and pelvis study of 03/17/20. Findings: Bibasilar atelectasis is noted, worse on the right side. Trace right-sided pleural effusion is noted. Fluid and air is noted within the gallbladder fossa. Findings presumably are due to postsurgical change. No focal abnormality appreciated within the liver. Spleen appears within normal limits. Contrast is noted within the distal esophagus compatible with reflux. Adrenal glands show no nodule. Pancreas is within normal limits. Kidneys show no hydronephrosis or mass. Aorta shows no aneurysm. No retroperitoneal adenopathy or mesenteric abnormalities are seen. Small fat-containing umbilical hernia is noted. Appendix is seen which is normal in size. Mild to moderate free fluid seen within the dependent pelvis most likely reactive from previous surgery. Olvera catheter is noted within the bladder. Mild haziness within the anterior abdominal wall is seen most likely related to previous surgery. Small amount of fluid is noted around the liver possibly reactive from previous surgery. Impression: 1. Bibasilar atelectasis, worse on the right side. Trace right-sided pleural effusion is noted. 2. Fluid and air within the gallbladder fossa most likely post surgical. Small amount of fluid around the liver as well as within the dependent pelvis most likely from recent surgery. 3. Mild inflammatory change within the anterior abdominal fat most likely postsurgical. 4. Other findings believed to be nonacute. Diagnostic code #3 This report was dictated in MDT
--- NOTE | 2020-03-22 10:55 | CR ---
Chest: 2 views of the chest were obtained. Comparison: No prior chest imaging is available. Somewhat limited inspiratory effort is seen. This causes mild atelectasis within the left base. Lungs otherwise are clear. Heart size and mediastinum are normal. Bony structures are grossly intact. Impression: 1. Limited inspiratory study. 2. Mild left basilar atelectasis. 3. Nothing acute is otherwise seen. Diagnostic code #2 This report was dictated in MDT
[2020-03-22] MEDS ORDERED: Ondansetron 4 MG/2 ML SDV IV PRN (12:58)
[2020-03-22] MEDS ORDERED: Ketorolac 30 MG/ML SDV IV PRN (12:58)
[2020-03-22] MEDS ORDERED: Albuterol/Ipratropium 3.0-0.5 MG/3 ML Neb Soln NEB PRN (12:58)
--- NOTE | 2020-03-22 12:58 | PCM.HP.2 ---
H&P History of Present Illness - General Date of Service: 03/22/20 Admit Problem/Dx: Admission Diagnosis/Problem Admission Diagnosis/Problem Hypoxia Source of Information: Patient, Old Records, Provider, RN, RN Notes Reviewed History Limitations: Reports: No Limitations - History of Present Illness Initial Comments - Free Text/Narative: Yuniel Mace is a 44-year-old male who presents to ED on 03/22/2020 via [facility] with abdominal pain that radiates to his back he was in the ED on 03/17/2020 21st abdominal pain, nausea, and vomiting and was found to have gallbladder sludge and gallstones with early cholecystitis. Laparoscopic cholecystectomy was performed on 03/18/2020 and it was said to be a difficult procedure. He was subsequently hospitalized and discharged home on 03/19/2020. Now reports severe pain which began around 2 AM and proceeded to get worse. He has been taking his prescription oxycodone with no relief. Denies any fever, nausea, vomiting, diarrhea. Has a follow-up appointment with his surgeon, Dr. Zay Gordon, next week. In the ED blood pressure is elevated at 164/121 but he is hemodynamically stable , afebrile, and saturating 96% on room air. He is noted to have mild leukocytosis but no bandemia. CMP is grossly unremarkable with a mildly elevated anion gap. Magnesium is slightly low. He is given two 1 mg IV pushes of Dilaudid and 2 g of IV magnesium along with Zofran and IV fluids. CT scan of the abdomen is obtained interpreted by Dr. Gupta as "1. Bibasilar atelectasis, worse on the right side. Trace right-sided pleural effusion is noted. 2. Fluid and air within the gallbladder fossa most likely postsurgical. Small amount of fluid around the liver as well as within the dependent pelvis most likely from recent surgery. 3. Mild inflammatory change within the anterior abdominal fat most likely postsurgical. 4. Other findings believed to be nonacute." Regional plan was to discharge the patient home with a prescription for more oxycodone and have him follow-up with Dr. Gordon next week. Unfortunate the patient was then noted to have desaturations down to 85% . He was given incentive spirometry with minimal effect. Bibasilar crackles are noted and chest x-ray is obtained showing limited inspiration with mild basilar atelectasis but nothing acute. He was then placed on oxygen. ABG is obtained showing primary respiratory alkalosis. Dr. Gordon did swing by to see the patient and requested he be admitted to the hospitalist service for pain management and to work on his hypoxia. He carries a history of BPH and prior cholecystectomy as noted above. He is a current smoker. He does not have a primary care provider listed. He subsequently admitted to the medical floor observation status for pain control and management of his hypoxia. abdomen Pain Score (Numeric/FACES): 10 - Related Data Allergies/Adverse Reactions: Allergies Allergy/AdvReac Type Severity Reaction Status Date / Time No Known Allergies Allergy Verified 03/22/20 04:50 Home Medications: Home Meds Cetirizine [ZyrTEC] 10 mg PO DAILY 03/18/20 [History] Ibuprofen 200 mg PO Q4H PRN 03/18/20 [History] oxyCODONE 5 mg PO Q4H PRN #10 tab 03/18/20 [Rx] Tamsulosin [Flomax] 0.4 mg PO DAILY #10 cap.er 03/19/20 [Rx] oxyCODONE HCl [Oxycodone HCl] 5 mg PO Q4H PRN #10 capsule 03/22/20 [Rx] Past Medical History HEENT History: Reports: Sinusitis Genitourinary History: Reports: BPH - Infectious Disease History Infectious Disease History: Reports: Chicken Pox - Past Surgical History HEENT Surgical History: Reports: Oral Surgery (Edentulous) GI Surgical History: Reports: Cholecystectomy (03/18/2020) Social & Family History - Family History Family Medical History: Noncontributory - Tobacco Use Smoking Status *Q: Current Every Day Smoker Years of Tobacco use: 33 Packs/Tins Daily: 0.8 - Caffeine Use Caffeine Use: Reports: None Caffeine Use Comment: 2 energy drinks/day - Recreational Drug Use Recreational Drug Use: Yes Drug Use in Last 12 Months: No Recreational Drug Type: Reports: Marijuana/Hashish (last smoked around 1999) - Living Situation & Occupation Living situation: Reports: , with Spouse, with Family (1 child) Occupation: Unemployed (Laid off [employer]) H&P Review of Systems - Review of Systems: Review Of Systems: See Below General: Reports: No Symptoms. Denies: Fever, Chills, Malaise, Weakness, Fatigue HEENT: Reports: No Symptoms. Denies: Headaches, Sore Throat Pulmonary: Reports: No Symptoms. Denies: Shortness of Breath, Wheezing, Pleuritic Chest Pain, Cough, Sputum Cardiovascular: Reports: No Symptoms. Denies: Chest Pain, Palpitations, Dyspnea on Exertion, Edema, Lightheadedness Gastrointestinal: Reports: Abdominal Pain. Denies: Constipation, Diarrhea, Nausea, Vomiting Genitourinary: Reports: No Symptoms. Denies: Pain Musculoskeletal: Reports: Shoulder Pain (bilateral ) Skin: Reports: No Symptoms. Denies: Cyanosis Psychiatric: Reports: No Symptoms. Denies: Confusion Neurological: Reports: No Symptoms Hematologic/Lymphatic: Reports: No Symptoms Immunologic: Reports: No Symptoms Exam - Exam Exam: See Below - Vital Signs Vital Signs: Last Vital Signs Temp 98.3 F 03/22/20 04:47 Pulse 96 03/22/20 04:47 Resp 18 03/22/20 04:47 BP 164/121 H 03/22/20 04:47 Pulse Ox 96 03/22/20 04:47 Weight: 138 lb - Exam Quality Assessment: Supplemental Oxygen, Urinary Catheter (prior to admission ) , DVT Prophylaxis General: Alert, Oriented, Cooperative, Moderate Distress (abdominal pain ) HEENT: Conjunctiva Clear, EACs Clear, Hearing Intact, Mucosa Moist & Garceno, Nares Patent, PERRLA Neck: Supple, Trachea Midline Lungs: Normal Respiratory Effort, Crackles (mild in bases ) Cardiovascular: Regular Rate, Regular Rhythm GI/Abdominal Exam: Normal Bowel Sounds, Soft, No Distention, Tender ( generalized but mostly RUQ), Other (Laparoscopic surgery sites appear to be healing well.) (Male) Exam: Deferred Rectal (Males) Exam: Deferred Back Exam: Normal Inspection, Full Range of Motion Extremities: Normal Inspection, Normal Range of Motion, Non-Tender, No Pedal Edema, Normal Capillary Refill Skin: Warm, Dry, Intact Neurological: Cranial Nerves Intact (grossly ) Neuro Extensive - Mental Status: Alert, Oriented x3 - Patient Data Lab Results Last 24 hrs: Laboratory Results - last 24 hr 03/22/20 03/22/20 03/22/20 Range/Units 05:25 05:25 12:20 WBC 10.55 H (4.23-9.07) K/mm3 RBC 4.40 L (4.63-6.08) M/mm3 Hgb 13.2 L (13.7-17.5) gm/dl Hct 39.0 L (40.1-51.0) % MCV 88.6 (79.0-92.2) fl MCH 30.0 (25.7-32.2) pg MCHC 33.8 (32.2-35.5) g/dl RDW Std Deviation 41.8 (35.1-43.9) fL Plt Count 288 (163-337) K/mm3 MPV 10.1 (9.4-12.3) fl Neutrophils % (Manual) 73 H (40-60) % Band Neutrophils % 0 (0-10) % Lymphocytes % (Manual) 19 L (20-40) % Atypical Lymphs % 0 % Monocytes % (Manual) 6 (2-10) % Eosinophils % (Manual) 2 (0.8-7.0) % Basophils % (Manual) 0 L (0.2-1.2) Platelet Estimate Adequate RBC Morph Comment Normal Puncture Site Rt radial ABG pH 7.40 (7.35-7.45) ABG pCO2 38.8 (35.0-45.0) mmHg ABG pO2 78.0 L (80.0-100.0) mmHg ABG HCO3 23.6 (22.0-26.0) meq/L ABG O2 Saturation 95.9 L (96.0-97.0) % ABG Base Excess -0.5 (-2-2.0) Edgar Test Positive A-a Gradient 74 mmHg O2 Delivery Device Nasal cannula Oxygen Flow Rate 1.5 FiO2 26.00 (21.00-100.00) % Sodium 142 (136-145) mEq/L Potassium 3.7 (3.5-5.1) mEq/L Chloride 104 (98-107) mEq/L Carbon Dioxide 23 (21-32) mEq/L Anion Gap 18.7 H (5-15) BUN 12 (7-18) mg/dL Creatinine 1.0 (0.7-1.3) mg/dL Est Cr Clr Drug Dosing 81.72 mL/min Estimated GFR (MDRD) > 60 (>60) mL/min BUN/Creatinine Ratio 12.0 L (14-18) Glucose 136 H (74-106) mg/dL Calcium 9.1 (8.5-10.1) mg/dL Magnesium 1.6 L (1.8-2.4) mg/dl Total Bilirubin 0.6 (0.2-1.0) mg/dL AST 27 (15-37) U/L ALT 99 H (16-63) U/L Alkaline Phosphatase 94 (46-116) U/L Total Protein 6.7 (6.4-8.2) g/dl Albumin 3.0 L (3.4-5.0) g/dl Globulin 3.7 gm/dL Albumin/Globulin Ratio 0.8 L (1-2) Lipase 49 L (73-393) U/L Result Diagrams: 03/22/20 05:25 03/22/20 05:25 Sepsis Event Note - Evaluation Sepsis Screening Result: No Definite Risk - Focused Exam Vital Signs: Vital Signs Temp Pulse Resp BP Pulse Ox 03/22/20 04:47 98.3 F 96 18 164/121 H 96 Date Exam was Performed: 03/22/20 Time Exam was Performed: 14:30 - Problem List (1) Acute post-operative pain SNOMED Code(s): 604031102208543 ICD Code: G89.18 - OTHER ACUTE POSTPROCEDURAL PAIN Status: Acute Priority : High Current Visit: Yes (2) Shoulder pain, bilateral SNOMED Code(s): 03866852 ICD Code: M25.511 - PAIN IN RIGHT SHOULDER; M25.512 - PAIN IN LEFT SHOULDER Status: Acute Priority: High Current Visit: Yes Qualifiers: Chronicity: acute Qualified Code(s): M25.511 - Pain in right shoulder; M25.512 - Pain in left shoulder (3) S/P laparoscopic cholecystectomy SNOMED Code(s): 716981282, 07398081, 081007094 ICD Code: Z90.49 - ACQUIRED ABSENCE OF OTHER SPECIFIED PARTS OF DIGESTIVE TRACT Status: Acute Priority: High Current Visit: Yes (4) Hypoxia SNOMED Code(s): 400760753 ICD Code: R09.02 - HYPOXEMIA Status: Acute Priority: High Current Visit : Yes (5) BPH (benign prostatic hyperplasia) SNOMED Code(s): 892935359 ICD Code: N40.0 - BENIGN PROSTATIC HYPERPLASIA WITHOUT LOWER URINRY TRACT SYMP Status: Chronic Priority: Low Current Visit: No Qualifiers: Lower urinary tract symptom presence: symptoms absent Qualified Code(s): N40.0 - Benign prostatic hyperplasia without lower urinary tract symptoms (6) Current smoker SNOMED Code(s): 40603777 ICD Code: F17.200 - NICOTINE DEPENDENCE, UNSPECIFIED, UNCOMPLICATED Status : Acute Current Visit: Yes (7) Postoperative urinary retention SNOMED Code(s): 819542647 ICD Code: N99.89 - OTH POSTPROCEDURAL COMPLICATIONS AND DISORDERS OF SYS; R33.8 - OTHER RETENTION OF URINE Status: Chronic Priority: Medium Current Visit: Yes (8) Miguel catheter in place on admission SNOMED Code(s): 817663556 ICD Code: Z97.8 - PRESENCE OF OTHER SPECIFIED DEVICES Status: Chronic Priority: Medium Current Visit: Yes (9) Hypomagnesemia SNOMED Code(s): 771330953 ICD Code: E83.42 - HYPOMAGNESEMIA Status: Acute Priority: High Current Visit: Yes (10) Atelectasis of left lung SNOMED Code(s): 44953584 ICD Code: J98.11 - ATELECTASIS Status: Acute Current Visit: Yes Problem List Initiated/Reviewed/Updated: Yes Orders Last 24hrs: Active Orders 24 hr Category Date Time Status Patient Status [ADT] Routine ADT 03/22/20 12:33 Active Incentive Spirometry [RT Incentive Spirometry] [RC] Care 03/22/20 09:01 Active ASDIRECTED Peripheral IV Care [RC] . DIRECTED Care 03/22/20 05:16 Active Sodium Chloride 0.9% [Normal Saline] 1,000 ml Med 03/22/20 05:15 Active IV ASDIRECTED Sodium Chloride 0.9% [Saline Flush] Med 03/22/20 05:16 Active 10 ml FLUSH ASDIRECTED PRN Peripheral IV Insertion Adult [OM.PC] Routine Oth 03/22/20 05:16 Ordered Medication Orders Sodium Chloride (Normal Saline) 1,000 mls @ 150 mls/hr IV ASDIRECTED ROSA Last Admin: 03/22/20 05:31 Dose: 150 mls/hr Sodium Chloride (Saline Flush) 10 ml FLUSH ASDIRECTED PRN PRN Reason: Keep Vein Open Last Admin: 03/22/20 05:59 Dose: 10 ml Assessment/Plan Comment:: Acute post-operative pain Hypoxia S/P laparoscopic cholecystectomy Atelectasis of left lung Shoulder pain, bilateral Presented to ED on 03/17/20 and diagnosed with early cholecystitis, cholelithiasis Difficult laparoscopic cholecystectomy performed by Dr. Gordon on 03/18/20 Hospitalized from 03/17/20 - 03/18/20 Now reports sudden onset of generalized abdominal pain, worse in RUQ and bilateral shoulder pain Shoulder pain is likely referred pain Lipase WNL Incision sites healing well 96% oxygen saturations on arrival -> down to 85% in ED after Dilaudid -> placed on O2 CT scan in ED shows typical post-surgical findings, nothing believed to be acute CXR shows poor inspiratory effort and left basilar atelectasis IS given in ED Plan was to discharge home with Rx for more pain meds however, patient requiring oxygen and having more pain PLAN - Pain medications as ordered - O2 as needed - attempt to wean - IS/RT consult - No need for surgical consult at this time Hypomagnesemia Magnesium 1.6 2gm supplement given in ED PLAN - Re-check labs in AM - Supplement as needed Postoperative urinary retention Miguel catheter in place on admission BPH (benign prostatic hyperplasia) Hx/o BPH on home Flomax Miguel catheter placed post-surgically due to urinary retention Has follow-up with urology PLAN - Nursing miguel care - Continue miguel catheter - Hold Flomax due to miguel in place Current smoker Reports daily tobacco use PLAN - Cessation counseling - Nicotine patch DVT Prophylaxis: Lovenox GI prophylaxis: Not indicated PCP: None Surgeon: Dr. Gordon Disposition: Patient will be admitted to medical floor observation status for pain control and respiratory toilet. Likely discharge in next 24-48 hours. - Mortality Measure Prognosis:: Good
[2020-03-22] MEDS ORDERED: Acetaminophen/Codeine 300-30 MG Tab PO PRN (13:01)
[2020-03-22] MEDS ORDERED: Meperidine 50 MG/ML Vial IVPUSH PRN (13:01)
[2020-03-22] MEDS ORDERED: Meperidine 50 MG/ML Vial IVPUSH ONE (13:02)
[2020-03-22] MEDS ORDERED: Nicotine 14 MG/24 Hr Patch TRDERM SCH (14:00)
--- NOTE | 2020-03-23 08:42 | PCM.DCSUM1 ---
Discharge Summary - Hospital Course HPI Initial Comments: Yuniel Mace is a 44-year-old male who presents to ED on 03/22/2020 via [facility] with abdominal pain that radiates to his back he was in the ED on 03/17/2020 21st abdominal pain, nausea, and vomiting and was found to have gallbladder sludge and gallstones with early cholecystitis. Laparoscopic cholecystectomy was performed on 03/18/2020 and it was said to be a difficult procedure. He was subsequently hospitalized and discharged home on 03/19/2020. Now reports severe pain which began around 2 AM and proceeded to get worse. He has been taking his prescription oxycodone with no relief. Denies any fever, nausea, vomiting, diarrhea. Has a follow-up appointment with his surgeon, Dr. Zay Gordon, next week. In the ED blood pressure is elevated at 164/121 but he is hemodynamically stable , afebrile, and saturating 96% on room air. He is noted to have mild leukocytosis but no bandemia. CMP is grossly unremarkable with a mildly elevated anion gap. Magnesium is slightly low. He is given two 1 mg IV pushes of Dilaudid and 2 g of IV magnesium along with Zofran and IV fluids. CT scan of the abdomen is obtained interpreted by Dr. Gupta as "1. Bibasilar atelectasis, worse on the right side. Trace right-sided pleural effusion is noted. 2. Fluid and air within the gallbladder fossa most likely postsurgical. Small amount of fluid around the liver as well as within the dependent pelvis most likely from recent surgery. 3. Mild inflammatory change within the anterior abdominal fat most likely postsurgical. 4. Other findings believed to be nonacute." Regional plan was to discharge the patient home with a prescription for more oxycodone and have him follow-up with Dr. Gordon next week. Unfortunate the patient was then noted to have desaturations down to 85% . He was given incentive spirometry with minimal effect. Bibasilar crackles are noted and chest x-ray is obtained showing limited inspiration with mild basilar atelectasis but nothing acute. He was then placed on oxygen. ABG is obtained showing primary respiratory alkalosis. Dr. Gordon did swing by to see the patient and requested he be admitted to the hospitalist service for pain management and to work on his hypoxia. He carries a history of BPH and prior cholecystectomy as noted above. He is a current smoker. He does not have a primary care provider listed. He subsequently admitted to the medical floor observation status for pain control and management of his hypoxia. Diagnosis: Stroke: No - Discharge Data Discharge Date: 03/23/20 (Admit date: 03/22/20) Discharge Disposition: Home, Self-Care 01 Condition: Good - Referral to Home Health Primary Care Physician: PCP None - Discharge Diagnosis/Problem(s) (1) Acute post-operative pain SNOMED Code(s): 710130546702940 ICD Code: G89.18 - OTHER ACUTE POSTPROCEDURAL PAIN Status: Acute Priority : High Current Visit: Yes (2) Shoulder pain, bilateral SNOMED Code(s): 42707321 ICD Code: M25.511 - PAIN IN RIGHT SHOULDER; M25.512 - PAIN IN LEFT SHOULDER Status: Resolved Priority: High Current Visit: Yes Qualifiers: Chronicity: acute Qualified Code(s): M25.511 - Pain in right shoulder; M25.512 - Pain in left shoulder (3) S/P laparoscopic cholecystectomy SNOMED Code(s): 211749189, 39775009, 457619957 ICD Code: Z90.49 - ACQUIRED ABSENCE OF OTHER SPECIFIED PARTS OF DIGESTIVE TRACT Status: Acute Priority: High Current Visit: Yes (4) Hypoxia SNOMED Code(s): 270767200 ICD Code: R09.02 - HYPOXEMIA Status: Resolved Priority: High Current Visit: Yes (5) BPH (benign prostatic hyperplasia) SNOMED Code(s): 540947948 ICD Code: N40.0 - BENIGN PROSTATIC HYPERPLASIA WITHOUT LOWER URINRY TRACT SYMP Status: Chronic Priority: Low Current Visit: No Qualifiers: Lower urinary tract symptom presence: symptoms absent Qualified Code(s): N40.0 - Benign prostatic hyperplasia without lower urinary tract symptoms (6) Current smoker SNOMED Code(s): 73349954 ICD Code: F17.200 - NICOTINE DEPENDENCE, UNSPECIFIED, UNCOMPLICATED Status : Acute Current Visit: Yes (7) Postoperative urinary retention SNOMED Code(s): 974960218 ICD Code: N99.89 - OTH POSTPROCEDURAL COMPLICATIONS AND DISORDERS OF SYS; R33.8 - OTHER RETENTION OF URINE Status: Chronic Priority: Medium Current Visit: Yes (8) Olvera catheter in place on admission SNOMED Code(s): 631540626 ICD Code: Z97.8 - PRESENCE OF OTHER SPECIFIED DEVICES Status: Chronic Priority: Medium Current Visit: Yes (9) Hypomagnesemia SNOMED Code(s): 295275141 ICD Code: E83.42 - HYPOMAGNESEMIA Status: Resolved Priority: High Current Visit: Yes (10) Atelectasis of left lung SNOMED Code(s): 14183394 ICD Code: J98.11 - ATELECTASIS Status: Acute Current Visit: Yes - Patient Summary/Data Consults: Consultations 03/22/20 12:58 Respiratory Care Assess and Treatment [CONS] Routine Labs Pending at D/C: None Recommended Follow-up Testing/Procedures: Follow-up with Dr. Gordon and urology as scheduled Hospital Course: Yuniel was admitted to the medical floor observation status for pain control and hypoxia, likely secondary to pain and opioid administration. Patient was given several doses of Dilaudid in the ED and was requiring oxygen once admitted on the floor. He was given incentive spirometer and did utilize this regularly. He was able to be weaned off of oxygen. He was given 150 mg dose of Demerol yesterday evening once on the floor and has not required any pain medication since then. Reports his pain is minimal at this time. We discussed future pain management and he was told not to continue taking his oxycodone instead take Demerol as needed. He was cautioned against driving or operating heavy machinery as he is aware this is an opioid and may affect his alertness. He was also instructed to utilize this for severe pain and take ibuprofen as directed prior for less severe pain. We discussed weaning off pain medications. He was instructed to continue utilizing his incentive spirometry for the next few days. He does have a Olvera catheter in place due to postoperative urinary retention and he has a follow-up appointment today in [place] with urology to have this removed. He was instructed to follow-up with this appointment as scheduled and to follow-up with Dr. Gordon, general surgeon, as scheduled for postoperative care. We discussed his smoking status as he is a current smoker and he reports he is going to attempt to quit. He is refusing cessation aids at this time. He was given multiple resources and contact information for cessation programs. He was discharged today. Home medications were continued with the exception of oxycodone as mentioned prior. Instructed to return the emergency room or follow-up with a primary care provider or Dr. Gordon should symptoms return or worsen. - Patient Instructions Diet: Usual Diet as Tolerated Activity, Other: As directed by Dr. Gordon Wound/Incision Care: Keep Operative Site/Wound Site Clean and Dry Notify Provider of: Fever, Increased Pain, Nausea and/or Vomiting Other/Special Instructions: Follow-up with Dr. Gordon as scheduled. Follow- up with urology as scheduled. Resume home medications as directed. Stop taking the oxycodone and begin taking the meperidine as needed. You may use ibuprofen for mild pain. Attempt to wean your pain meds as you are able. Use caution with meperidine. It is an opioid and you should not drive or operate heavy machinery while on it. Continue to utilize your incentive spirometer (Clear/ blue device you inhale through) for the next few days. We discussed your smoking status and you indicated you do not want any nicotine patches or cessation aids. Should you change your mind you were given resources such as [employer] and the [facility] contact information. They will have resources available for you. You may also contact a primary care provider to discuss this or our smoking cessation coordinator in our clinic. Should symtpoms return or worsen contact primary care provider or return to the Emergency Department. - Discharge Plan *PRESCRIPTION DRUG MONITORING PROGRAM REVIEWED*: No *COPY OF PRESCRIPTION DRUG MONITORING REPORT IN PATIENT GERMAN: No Prescriptions/Med Rec: Meperidine HCl 50 mg PO Q4HR PRN #10 tablet PRN Reason: Severe pain Home Medications: Home Meds Cetirizine [ZyrTEC] 10 mg PO DAILY 03/18/20 [History] Ibuprofen 200 mg PO Q4H PRN 03/18/20 [History] Tamsulosin [Flomax] 0.4 mg PO DAILY #10 cap.er 03/19/20 [Rx] Meperidine HCl 50 mg PO Q4HR PRN #10 tablet 03/23/20 [Rx] Oxygen Therapy Mode: Room Air Patient Handouts: Indwelling Urinary Catheter Care, Adult, Pain Medicine Instructions, [id number], Steps to Quit Smoking, Preventing Constipation After Surgery Referrals: PCP,None [Primary Care Provider] - - Discharge Summary/Plan Comment DC Time >30 min.: Yes (40 minutes ) - General Info Date of Service: 03/23/20 Admission Dx/Problem (Free Text: Admission Diagnosis/Problem Admission Diagnosis/Problem Hypoxia Functional Status: Reports: Pain Controlled, Tolerating Diet, Ambulating, Urinating, Incentive Spirometry. Denies: New Symptoms - Review of Systems General: Reports: No Symptoms. Denies: Fever, Weakness, Fatigue, Malaise, Chills HEENT: Reports: No Symptoms. Denies: Headaches, Sore Throat Pulmonary: Reports: No Symptoms. Denies: Shortness of Breath, Pleuritic Chest Pain, Cough, Sputum, Wheezing Cardiovascular: Reports: No Symptoms. Denies: Chest Pain, Palpitations, Dyspnea on Exertion, Edema Gastrointestinal: Reports: Abdominal Pain (Very minimal ). Denies: Constipation , Diarrhea, Nausea, Vomiting Genitourinary: Reports: Retention. Denies: Pain Musculoskeletal: Reports: No Symptoms Skin: Reports: No Symptoms. Denies: Cyanosis Neurological: Reports: No Symptoms. Denies: Confusion, Difficulty Walking, Weakness, Gait Disturbance Psychiatric: Reports: No Symptoms - Patient Data Vitals - Most Recent: Last Vital Signs Temp 98.1 F 03/23/20 08:05 Pulse 81 03/23/20 08:05 Resp 20 03/23/20 08:05 BP 126/87 03/23/20 08:05 Pulse Ox 94 L 03/23/20 08:05 Weight - Most Recent: 238 lb 8 oz I&O - Last 24 hours: Intake & Output 03/22/20 03/23/20 03/23/20 22:59 06:59 14:59 Intake Total 620 Output Total 600 950 Balance -600 -330 Lab Results - Last 24 hrs: Laboratory Results - last 24 hr 03/22/20 03/23/20 03/23/20 Range/Units 12:20 05:13 05:13 WBC 9.80 H (4.23-9.07) K/mm3 RBC 4.12 L (4.63-6.08) M/mm3 Hgb 12.1 L (13.7-17.5) gm/dl Hct 37.3 L (40.1-51.0) % MCV 90.5 (79.0-92.2) fl MCH 29.4 (25.7-32.2) pg MCHC 32.4 (32.2-35.5) g/dl RDW Std Deviation 43.1 (35.1-43.9) fL Plt Count 298 (163-337) K/mm3 MPV 9.8 (9.4-12.3) fl Neut % (Auto) 70.7 H (34.0-67.9) % Lymph % (Auto) 17.3 L (21.8-53.1) % Brewster % (Auto) 10.2 (5.3-12.2) % Eos % (Auto) 1.4 (0.8-7.0) Baso % (Auto) 0.2 (0.1-1.2) % Neut # (Auto) 6.92 H (1.78-5.38) K/mm3 Lymph # (Auto) 1.70 (1.32-3.57) K/mm3 [place]ster # (Auto) 1.00 H (0.30-0.82) K/mm3 Eos # (Auto) 0.14 (0.04-0.54) K/mm3 Baso # (Auto) 0.02 (0.01-0.08) K/mm3 Puncture Site Rt radial ABG pH 7.40 (7.35-7.45) ABG pCO2 38.8 (35.0-45.0) mmHg ABG pO2 78.0 L (80.0-100.0) mmHg ABG HCO3 23.6 (22.0-26.0) meq/L ABG O2 Saturation 95.9 L (96.0-97.0) % ABG Base Excess -0.5 (-2-2.0) Edgar Test Positive A-a Gradient 74 mmHg O2 Delivery Device Nasal cannula Oxygen Flow Rate 1.5 FiO2 26.00 (21.00-100.00) % Sodium 140 (136-145) mEq/L Potassium 4.0 (3.5-5.1) mEq/L Chloride 103 (98-107) mEq/L Carbon Dioxide 27 (21-32) mEq/L Anion Gap 14.0 (5-15) BUN 9 (7-18) mg/dL Creatinine 0.9 (0.7-1.3) mg/dL Est Cr Clr Drug Dosing 105.90 mL/min Estimated GFR (MDRD) > 60 (>60) mL/min BUN/Creatinine Ratio 10.0 L (14-18) Glucose 109 H (74-106) mg/dL Calcium 8.7 (8.5-10.1) mg/dL Phosphorus 3.4 (2.6-4.7) mg/dL Magnesium 1.9 (1.8-2.4) mg/dl Total Bilirubin 0.9 (0.2-1.0) mg/dL AST 18 (15-37) U/L ALT 72 H (16-63) U/L Alkaline Phosphatase 91 (46-116) U/L Total Protein 6.4 (6.4-8.2) g/dl Albumin 2.7 L (3.4-5.0) g/dl Globulin 3.7 gm/dL Albumin/Globulin Ratio 0.7 L (1-2) Med Orders - Current: Current Medications Acetaminophen/Codeine Phosphate (Tylenol With Codeine No.3 300mg/30mg) 1 tab PO Q4H PRN PRN Reason: Pain Albuterol/Ipratropium (Duoneb 3.0-0.5 Mg/3 Ml) 3 ml NEB Q4H PRN PRN Reason: Shortness Of Breath/wheezing Enoxaparin Sodium (Lovenox) 40 mg SUBCUT DAILY [facility] Last Admin: 03/23/20 08:26 Dose: 40 mg Ketorolac Tromethamine (Toradol) 30 mg IV Q6H PRN PRN Reason: Pain (moderate 4-6) Loratadine (Claritin) 10 mg PO DAILY [facility] Last Admin: 03/23/20 08:27 Dose: 10 mg Meperidine HCl (Meperidine) 50 mg IVPUSH Q6H PRN PRN Reason: Pain (severe 7-10) Miscellaneous Information (Remove Patch) 1 ea TRDERM Q24H [facility] Nicotine (Habitrol) 14 mg TRDERM Q24H [facility] Last Admin: 03/22/20 15:27 Dose: Not Given Ondansetron HCl (Zofran) 4 mg IV Q6H PRN PRN Reason: Nausea/Vomiting Last Admin: 03/22/20 15:29 Dose: 4 mg Sodium Chloride (Saline Flush) 10 ml FLUSH ASDIRECTED PRN PRN Reason: Keep Vein Open Last Admin: 03/22/20 05:59 Dose: 10 ml Discontinued Medications Hydromorphone HCl (Dilaudid) 1 mg IVPUSH ONETIME STA Stop: 03/22/20 05:15 Last Admin: 03/22/20 05:32 Dose: 1 mg Hydromorphone HCl (Dilaudid) 1 mg IVPUSH ONETIME ONE Stop: 03/22/20 06:54 Last Admin: 03/22/20 06:58 Dose: 1 mg Sodium Chloride (Normal Saline) 1,000 mls @ 150 mls/hr IV ASDIRECTED ROSA Last Admin: 03/22/20 05:31 Dose: 150 mls/hr Magnesium Sulfate 2 gm/ Premix 50 mls @ 25 mls/hr IV ONETIME ONE Stop: 03/22/20 08:12 Last Admin: 03/22/20 06:20 Dose: 25 mls/hr Meperidine HCl (Meperidine) 50 mg IVPUSH ONETIME ONE Stop: 03/22/20 13:03 Last Admin: 03/22/20 13:39 Dose: 50 mg Ondansetron HCl (Zofran) 4 mg IVPUSH ONETIME ONE Stop: 03/22/20 05:15 Last Admin: 03/22/20 05:32 Dose: 4 mg - Exam Quality Assessment: Reports: Urine Catheter (Chronic ), DVT Prophylaxis. Denies : Supplemental Oxygen General: Reports: Alert, Oriented, Cooperative, No Acute Distress HEENT: Reports: Pupils Equal, Pupils Reactive, Mucous Membr. Moist/[place] Neck: Reports: Supple, Trachea Midline Lungs: Reports: Clear to Auscultation, Normal Respiratory Effort Cardiovascular: Reports: Regular Rate, Regular Rhythm GI/Abdominal Exam: Normal Bowel Sounds, Soft, Non-Tender, No Distention, No Abnormal Bruit, Other (Multiple laparoscopic surgery wounds on abdomen. No drainage or erythema. Wounds appear to be healing well.) (Male) Exam: Deferred Rectal (Males) Exam: Deferred Back Exam: Reports: Normal Inspection, Full Range of Motion Extremities: Normal Inspection, Normal Range of Motion, Non-Tender, No Pedal Edema, Normal Capillary Refill Skin: Reports: Warm, Dry, Intact Wound/Incisions: Reports: Healing Well, No Drainage. Denies: Erythema Neurological: Reports: No New Focal Deficit Psy/Mental Status: Reports: Alert
[2020-03-23] MEDS ORDERED: Loratadine 10 MG Tab PO SCH (09:00)
[2020-03-23] MEDS ORDERED: Enoxaparin 40 MG/0.4 ML Syringe SUBCUT SCH (09:00)
== END 2020-03-23 09:41 | disposition home or self-care (01) ==
LOC: JD.ED 04:45 → JD.MS 12:33
PROVIDERS: ADMIT Internal Medicine; ATTEND Internal Medicine
DX: G89.18 Other acute postprocedural pain (principal); M25.512 Pain in left shoulder; M25.511 Pain in right shoulder; R09.02 Hypoxemia; N40.0 Benign prostatic hyperplasia without lower urinary tract symptoms; N99.89 Other postprocedural complications and disorders of genitourinary system; R33.8 Other retention of urine; E83.42 Hypomagnesemia; J98.11 Atelectasis; F17.210 Nicotine dependence, cigarettes, uncomplicated; Z90.49 Acquired absence of other specified parts of digestive tract; Z79.899 Other long term (current) drug therapy; Z71.6 Tobacco abuse counseling
CPT/HCPCS: 36415; 36600; 71046; 74177; 80053; 82803; 83690; 83735; 84100; 85007; 85025; 85027; 94667; 94668; 94760; 96361; 96365; 96366; 96372; 96375; 96376; 99285; A9270; G0378; J1170; J1650; J2175; J2405; J3475; J7030; 99217; 99219